=== PATIENT | male | born 1950 ===

== ENCOUNTER 2025-03-26 10:43 | Outpatient (REF) | payer SELFPAY ==
[2025-03-26 11:36] LABS: Anion Gap 9 (12-20); Blood Urea Nitrogen 19 mg/dL (9-16); Calcium 8.1 mg/dL (8.4-10.2); Carbon Dioxide 25 mmol/L (22-29); Chloride 107 mmol/L (96-108); Estimated Glomerular Filt Rate > 60; Potassium 3.9 mmol/L (3.3-5.1); Sodium 137 mmol/L (135-145)
--- OUTSIDE RECORDS SUMMARY | 2025-03-26 13:50 | XMS_ITS | Encounter Summary ---
Author Organization [employer] [place] [address] Care Team Providers Care Pullman Clerk Name Role Phone Danny Angel MD Primary Care Provider [phone] Reason for Visit * Reason Onset Date Comments VNA 03/25/2025 Encounter Details Date Type Department Care Team ([facility] st Contact Info) Description 03/25/2025 Telephone Adult Medicine [facility] [address] [place] [address] Danny Angel MD [address] [place] [address] Social History Tobacco Use Types Packs/Day Years Used Date Smoking Tobacco: Never Passive Smoke Exposure: Never Smokeless Tobacco: Never Alcohol Use Standard Drinks/Week Comments Not Currently 0 (1 standard drink = 0.6 oz pur e alcohol) Housing Instability Answer Date Recorde d Are you worried that in the next 2 months you may not have stable housing? No 03/26/2025 Food Access & Nutrition Answer Date Rec orded Do you have access to a vari ety of food including fruits and vegetables? Yes 03/26/2025 Access to Healthcare Answer Date Record ed Within the last 3 months, ho w many times did you visit the emergency department for your medical care? 2 03/26/2025 Health Literacy Answer Date Recorded How often do you need to hav e someone help you when you read instructions, pamphlets, or other written material from your doctor or pharmacy? Always 03/26/2025 Caregiver: How often do you need to have someone help you when you read instructions, pamphlets, or other written material from your doctor or pharmacy? Not on file 03/26/2025 Financial Risk Answer Date Recorded How hard is it for you to pa y for the very basics like food, housing, medical care, and air conditioning / heating? Somewhat hard 03/26/2025 Transportation Answer Date Recorded Has the lack of transportati on kept you from meetings, work, or from getting things needed for daily living? No Has the lack of transportati on kept you from medical appointments or from getting medications? No 03/26/2025 Social Isolation Answer Date Recorded How often do you feel lonely or isolated from th ose around you? Never 03/26/2025 Food Risk Answer Date Recorded Within the past 12 months we worried whether our food would run out before we got money to buy more. Never true 03/26/2025 Within the past 12 months th e food we bought just didn't last and we didn't have money to get more. Never true 03/26/2025 Dependent Care Answer Date Recorded Do you need help finding or paying for care for your loved ones. For example, child development instructor or elderly care for an older adult? No 03/26/2025 Education Answer Date Recorded Do you think completing more education or training, like finishing a GED, going to college, or learning a trade, would be helpful for you? N/A 03/26/2025 Employment and Income Answer Date Recor ded During the last four weeks, have you been actively looking for work? No 03/26/2025 Living Situation Answer Date Recorded What is your living situation? Unrecognized valu e 03/26/2025 Interpersonal Safety Answer Date Record ed Physical Abuse Unrecognized value 03/14/2025 Verbal Abuse Unrecognized value 03/14/2025 Sex and Gender Information Value Date Recorded Sex Assigned at Male 03/26/2024 11:47 AM EST Legal Sex Male 9:07 AM EST Gender Identity Male 03/26/2024 11:47 AM EST Sexual Orientation Straight 05/09/2024 8: 26 AM EST documented as of this encounter Functional Status * Are you deaf or do you have serious difficulty hearing? Answer Date of Assessment Author Yes 01/19/2025 6:35 PM Shirlene Patton RN * Are you blind or do you have serious difficulty seeing, even when wearing glasses? Answer Date of Assessment Author No 01/19/2025 6:35 PM Shirlene Patton RN * Do you have serious difficulty walking or climbing stairs? Answer Date of Assessment Author Yes 01/19/2025 6:35 PM Shirlene Patton RN * Do you have serious difficulty dressing or bathing? Answer Date of Assessment Author Yes 01/19/2025 6:35 PM Shirlene Patton RN * Because of a physical, mental, or emotional condition, do you have serious difficulty doing errandsalone such as visiting the doctor? Answer Date of Assessment Author Yes 01/19/2025 6:35 PM Shirlene Patton RN documented as of this encounter Mental Status * Because of a physical, mental, or emotional condition, do you have serious difficulty concentrating, remembering, or making decisions? (5 years old or older) Answer Entry Date Author Yes 01/19/2025 6:35 PM Shirlene Patton RN documented in this encounter Progress Notes * Lázaro Artis LPN - 03/25/2025 12:42 PM EST VO left on (+ID) Daryl Gray * Danny Angel MD - 03/25/2025 12:24 PM EST Okay to VO for BMP * Lázaro Artis LPN - 03/25/2025 8:56 AM EST VNA called for VO for BMP lab draw Hospital follow up booked for 04/15/25 Please review and advise Please send response to nurse triage pool Please send response to nurse triage pool [place] [facility] * Katty Mahesh Parra - 03/25/2025 8:46 AM EST VNA CALL Which [facility]NA office is calling? [facility] Full name of caller: Daryl The caller is A nurse Is the caller at the patients home?: no Reason for call: verbal order for labs -BMP Does caller need an urgent call back? yes Was CONTACT Telephone # obtained above?: yes Fax #: n/a documented in this encounter Plan of Treatment Upcoming Encounters Date Type Department Care Team (Late st Contact Info) Description 03/28/2025 3:00 PM EST Office Visit Pulmonology - [place] [address] [address] Siomara Lora MD [address] [place] [phone] 04/15/2025 1:00 PM EST Office Visit Adult Medicine [address] [phone] Danny Angel MD [address] [place] [id number] 05/15/2025 11:00 AM EST Office Visit Gastroenterology - [address] [facility] [address] [place] [address] Placido Troy DO [address] [address] 07/25/2025 2:45 PM EDT Office Visit [facility] Hematology On[facility] [address] [place] [phone] Fan Manrique MD [address] [place] [phone] 08/19/2025 11:30 AM EDT Office Visit [address] [phone] Danny Angel MD [address] [place] [address] 01/20/2026 2:00 PM EDT Office Visit [address] [phone] Danny Angel MD [address] [place] [address] documented as of this encounter Goals Goal Patient Goal Type Associated Problems Recent Progress Patient-Stated? Author Pt to adhere to all medications General Yes Audra Contreras, RN Note: Pt to adhere to daily medication regimen. documented as of this encounter Visit Diagnoses Not on filedocumented in this encounter Additional Health Concerns Assessment Noted Time PHQ-9 Depression Total Score: 0 05/23/19 25 6:02 PM EST documented as of this encounter Care Teams Pullman Clerk Relationship Specialty Start Date End Date Danny Angel MD [address] [place] [address] PCP - General 12/12/23 documented as of this encounter
--- OUTSIDE RECORDS SUMMARY | 2025-03-26 13:50 | XMS_ITS ---
Author Organization [address] [place] [address] Address [address] [place] [address] Phone Care Team Providers Care Deburring Machine Operator Name Role Phone Danny Angel MD Primary Care Provider Chronic Care Management Status:Ongoing (Active) Start date:03/25/2025 Enrollment date:03/25/2025 Enrollment reason:Referral by Current Participant Related social drivers of health:TH Health Literacy Case Team Name Relationship Phone Audra Contreras RN(Responsible Staff) Sign Painter Helper Continued Care and Services Coordination
--- OUTSIDE RECORDS SUMMARY | 2025-03-26 13:50 | XMS_ITS | Clinical Summary ---
Author Organization [address] [facility] Address [address] [place] [address] Phone Care Team Providers Care Vp Site Name Role Phone Danny Angel MD Primary Care Provider [phone] Allergies No known active allergies Medications aspirin 81 mg chewable tablet Chew 1 tablet (81 mg total) 1 (one) time each day. Active carbidopa-levo dopa (SINEMET) 25-100 mg per tablet TAKE 1 TABLET BY MOUTH THREE TIMES A DAY 270 tablet 02/07/20 Active omeprazole OTC (PriLOSEC OTC) 20 mg EC tablet Take 1 tablet (20 mg total) by mouth 2 (two) times a day. Do not crush, chew, or split. 60 tablet 02/14/20 25 026 Active furosemide (LASIX) 20 mg tablet Take 2 tablets (40 mg total) by mouth 1 (one) time each day. 60 each 02/14/20 25 026 Active lactulose (CHRONULAC) solution TAKE 45 ML (30 G TOTAL) BY MOUTH 4 (FOUR) TIMES A DAY. TITRATE TO 3 TO 4 BOWEL MOVEMENTS A DAY 5203 mL 1 03/12/20 Active omeprazole (PriLOSEC) [address] capsule Take 1 capsule (20 mg total) by mouth 2 (two) times a day. 02/14/20 Active lactulose (CHRONULAC) solution TAKE 45 ML (30 G TOTAL) BY MOUTH 4 (FOUR) TIMES A DAY. TITRATE TO 3 TO 4 BOWEL MOVEMENTS A DAY 5400 mL 1 10/04/19 025 Discontinued spironolactone (ALDACTONE) 100 mg tablet Take 1 tablet (100 mg total) by mouth 1 (one) time each day. 30 each 02/14/20 025 Discontinued(St op Taking at Discharge) Active Problems Problem Noted Date Diagnosed Date Hyperkalemia 03/13/2025 Gastroesophageal reflux disease 02/18/2025 Pneumonia of right middle lobe due to infectious organism 01/20/2025 SIRS (systemic inflammatory response syndrome) 1 Onychomycosis 01/14/2025 Assessment & Plan (01/15/2025 10:58 AM EDT): Anemia 01/14/2025 Assessment & Plan (01/15/2025 10:58 AM EDT): Encounter for screening for malignant neoplasm o f prostate 01/14/2025 Assessment & Plan (01/15/2025 10:58 AM EDT): Orders: Prostate specific antigen screen; Future Depression 01/14/2025 Assessment & Plan (01/15/2025 10:58 AM EDT): Recurrent right pleural effusion 12/24/2024 Pleural effusion 12/04/2024 Dyspnea and respiratory abnormalities 12/03/2024 Dyspnea 12/02/2024 Hepatocellular carcinoma 07/19/2024 Liver tumor 07/16/2024 Candidal dermatitis 05/21/2024 Cellulitis of skin 05/20/2024 Dementia due to Parkinson's disease, without behavioral disturbance, psychotic disturbance, mood disturbance, or anxiety 04/30/2024 Skin rash 04/30/2024 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 Thrombocytopenia 04/30/2024 Encephalopathy acute 03/26/2024 Cirrhosis 01/09/2024 Parkinsonism 04/17/2023 Assessment & Plan (01/15/2025 10:58 AM EDT): Orders: Ambulatory referral to Neurology; Future Vitamin D deficiency 12/14/2022 Gallstone 11/15/2022 Overview (01/09/2024): US 11/2022 DDD (degenerative disc disease), lumbar 07/28/19 22 Abnormal liver enzymes 12/18/2020 Diabetes 12/18/2020 Class 1 obesity due to excess calories in adult 12/01/2020 Primary osteoarthritis of both knees 11/12/2020 Resolved Problems Problem Noted Date Diagnosed Date Resolved Date Hepatic encephalopathy 03/14/202403/29 Encounters Date Type Department Care Team Description 03/25/2025 Telephone Adult Medicine [address] [phone] Danny Angel MD 03/20/2025 Telephone Adult Medicine [address] [phone] Delma Bagley [place] 03/19/2025 3:30 PM EST Office Visit Infectious Disease - [address] [place] [phone] Elisa Abreu MD Empyema ([facility]/HCC V24, [facility]/HCC V28) (Primary Dx) 03/17/2025 Telephone Adult Medicine [address] [phone] Padmini Koch RN 03/13/2025 3:13 PM EST - 03/15/2025 4:00 PM EST Hospital Encounter [facility] [place] [facility] Medical Surgical Unit [address] [place] [phone] Vanessa Knight MD Reid, Oswald George, MD Jones, Christopher, MD Mohani, Priya, MD Kela, Kashyap Devendrabhai, MD Discharge Disposition: Home-Health Care [facility] 02/28/2025 Telephone Adult [address] [phone] Danny Angel MD 02/26/2025 Results Follow-Up [address] [phone] Danny Angel MD 02/25/2025 2:22 PM EST - 02/25/2025 11:59 PM EST Hospital Encounter [facility] [place] [facility] CT Scan [address] [place] [phone] Recurrent right pleural effusion Discharge Disposition: Home or Self Care 02/25/2025 2:10 PM EST Lab Draw Station - [address] [phone] Cirrhosis of liver with ascites, unspecified hepatic cirrhosis type (CMS/HCC V24, CMS/HCC V28); Hypocalcemia; Hyperglycemia 02/19/2025 Telephone Adult [address] [phone] Danny Angel MD 02/19/2025 Billing Patient Not Present [address] [phone] Danny Angel MD 02/18/2025 1:00 PM EST Office Visit [address] [phone] Danny Angel MD Hepatic encephalopathy (CMS/HCC V24, CMS/HCC V28) (Primary Dx); Parkinson's disease without dyskinesia, unspecified whether manifestations fluctuate (CMS/HCC V24, CMS/HCC V28); Cirrhosis of liver without ascites, unspecified hepatic cirrhosis type (CMS/HCC V24, CMS/HCC V28); Gastroesophageal reflux disease, unspecified whether esophagitis present; Hypocalcemia; Primary osteoarthritis of both knees; Hyperglycemia 02/14/2025 2:30 PM EST Ancillary Procedure [facility] [address] [facility] [address] [place] [phone] Recurrent right pleural effusion; Lower extremity edema 02/13/2025 10:30 AM EST Office Visit Gastroenterology - [address] [place] [address] Placido Troy DO Decompensation of cirrhosis of liver ([facility]/HCC V24, [facility] V28) (Primary Dx); Pleural effusion; Hydrothorax; Balanitis; History of portal hypertension; MSSA bacteremia; Cirrhosis of liver with ascites, unspecified hepatic cirrhosis type (CMS/HCC V24, [facility]/HCC V28); Hepatocellular carcinoma ([facility]/HCC V24, [facility] V28) 02/13/2025 Telephone Adult Medicine [address] [phone] Danny Angel MD 02/04/2025 3:00 PM EDT Office Visit Pulmonology - [place] [facility] [address] [place] [phone] Siomara Lora MD Recurrent right pleural effusion (Primary Dx) 01/29/2025 Telephone [facility] - [facility] [address] [facility] [place] [address] Mary Arteaga RN 01/28/2025 Telephone Pulmonology [address] [phone] Taina Cassidy [place] 01/19/2025 5:22 PM EDT - 01/28/2025 4:45 PM EDT Hospital Encounter [facility] [place] [facility] Intermediate Care Unit B [address] [place] [phone] Lynne Guerra DO Ishtiaq, Rizwan, MD Santoyo-Pachec o, Omar D, MD Seralathan, Manikandan, MD Rasul, Yar M, MD Pneumonia of right middle lobe due to infectious organism (Primary Dx); Sepsis, due to unspecified organism, unspecified whether acute organ dysfunction present ([facility]/HCC V24, [facility]/HCC V28); Hypomagnesemia; Pleural effusion; Bacteremia; Degeneration of intervertebral disc of lumbar region, unspecified whether pain present; Parkinson's disease with dyskinesia and fluctuating manifestations (CMS/HCC V24, CMS/HCC V28) Discharge Disposition: Home-Health Care [facility] 01/17/2025 2:30 PM EDT Office Visit [facility] [facility] Hematology Oncology [address] [place] [phone] Fan Sanchez MD Hepatocellular carcinoma (CMS/HCC V24, CMS/HCC V28) (Primary Dx); Pleural effusion; Parkinson's disease with dyskinesia and fluctuating manifestations (CMS/HCC V24, CMS/HCC V28) 01/15/2025 Results Follow-Up [address] [phone] Danny Angel MD 01/14/2025 2:00 PM EDT Office Visit [address] [phone] Danny Angel MD Encounter for subsequent annual wellness visit (AWV) in Medicare patient (Primary Dx); Routine general medical examination at a health care facility; Onychomycosis; Parkinson's disease, unspecified whether dyskinesia present, unspecified whether manifestations fluctuate ([facility]/HCC V24, CMS/HCC V28); Anemia, unspecified type; Encounter for screening for malignant neoplasm of prostate; Depression, unspecified depression type 01/10/2025 2:30 PM EDT Office Visit Pulmonology - [place] [address] [phone] Siomara Lora MD Recurrent right pleural effusion (Primary Dx); Dyspnea due to congestive heart failure (CMS/HCC V24, CMS/HCC V28); Decompensated cirrhosis (CMS/HCC V24, CMS/HCC V28); Liver disease, unspecified 01/03/2025 7:31 AM EDT Anesthesia Event [facility] [facility] Main OR [address] [place] [phone] Chris Garcia DO Hard, Shannon, CRNA 01/03/2025 7:30 AM EDT - 01/03/2025 9:00 AM EDT Surgery [facility] Main OR [address] [place] [phone] Siomara Lora MD INSERTION RIGHT PLEURAL CATHETER [[id number] (CPT )] 01/03/2025 5:57 AM EDT - 01/03/2025 11:55 AM EDT Hospital Encounter [facility] Main OR [address] [place] [phone] Siomara Lora MD Recurrent right pleural effusion Discharge Disposition: Home or Self Care 01/03/2025 Telephone Adult Medicine [address] [phone] Danny Angel MD from Last 3 Months Immunizations Immunization Administration Dates Next Due Moderna SARS-CoV-2 COVID-19, mRNA, LNP-S, preservative free 07/07/2020,06/09/2020 Pneumococcal conjugate 13 va lent (Prevnar 13, PCV13) 2mo and older 12/01/2020 Tdap Tetanus diptheria acell ular pertussis (Boostrix; Adacel) 7yo and older 12/01/2020 Surgical History Surgery Date Site/Laterality Comments LIVER BIOPSY CT LIVER MICROWAVE ABLATION US PLEURAL EFFUSION Medical History Medical History Date Comments Parkinson's disease (CMS/HCC V24, CMS/HCC V28) DX:Parkinson's disease (HCC) ; COMMENT: suspicious Type 2 diabetes mellitus wit hout complications (CMS/HCC V24, CMS/HCC V28) DX:Type 2 iqra betes mellitus without complications (HCC) Hepatocellular carcinoma (CM S/HCC V24, CMS/HCC V28) Cirrhosis (CMS/HCC V24, CMS/HCC V28) Portal hypertension (CMS/HCC V24, CMS/HCC V28) Esophageal varices (CMS/HCC V24, CMS/HCC V28) Thrombocytopenia (CMS/HCC V24) Dementia (CMS/HCC V24, CMS/HCC V28) Stroke (CMS/HCC V24, CMS/HCC V28) Family History Medical History Relation Name Comments Cancer of Small Bowel Brother x5 4 Cirrhosis Brother x5 4 uncle yea rs ago, alcoholism No Known Problems Daughter Stroke Father Cancer Mother [employer]ED [employer] ESC[employer] Cancer Liver cancer Sister 1 No Known Problems Sister 2 Other: Other Sister 3 bone cancer Asthma Son 1 from asthm a attack Relation Name Status Comments Brother x5 4 Daughter Alive Father Mother Sister 1 Sister 2 Alive Sister 3 Son 1 Son 2 Alive Social History Tobacco Use Types Packs/Day Years Used Date Smoking Tobacco: Never Passive Smoke Exposure: Never Smokeless Tobacco: Never Tobacco Cessation:Counseling Given: Not Answered Alcohol Use Standard Drinks/Week Comments Not Currently [...] care for your loved ones. For example, rn child or elderly care for an older adult? [...] Orientation Straight 05/09/2024 8: 26 AM EST Last Filed Vital Signs Vital Sign Reading Time Taken Comments Blood Pressure 94/60 03/19/2025 3:00 PM EST Pulse 86 03/19/2025 3:00 PM EST Temperature 37.6 C (99.6 F) 03/19/2025 3:00 PM EST Respiratory Rate 16 03/15/2025 3:13 PM EST Oxygen Saturation 98% 03/19/2025 3:00 PM EST Inhaled Oxygen Concentration - - Weight 76.2 kg (168 lb) 03/19/2025 3:00 PM EST Height 175.3 cm (5' 9 ) 02/18/2025 12:34 PM EST Body Mass Index 24.81 02/18/2025 12:34 PM EST Plan of Treatment Upcoming Encounters Date Type Department Care Team (Late st Contact Info) Description 03/28/2025 3:00 PM EST Office Visit Pulmonology - [address] [phone] Siomara Lora MD [address] [place] [phone] 04/15/2025 1:00 PM EST Office Visit Adult Medicine [address] [phone] Danny Angel MD [address] [place], [place] 05/15/2025 11:00 AM EST Office Visit Gastroenterology - [address] [phone] Placido Troy DO [address] [phone] 07/25/2025 2:45 PM EDT Office Visit [facility] Hematology Oncology [address] [place] [phone] Fan Manrique MD [address] [place] [phone] 08/19/2025 11:30 AM EDT Office Visit Adult Medicine [address] [phone] Danny Angel MD [address] [place], [place] 01/20/2026 2:00 PM EDT Office Visit Adult [address] [phone] Danny Angel MD [address] [place], [place] Health Maintenance Due Date Last Done Comments COVID-19 Vaccine (3 - Moderna risk series) 04/10/2025 07/07/2020, 06/09/2020 Postponed from 08/04/2020 (Patient Refused) Pneumococcal Vaccine: 50+ Years (2 of 2 - PPSV23, PCV20, or PCV21) 04/10/2025 12/01/2020 Postponed from 01/26/2021 (Patient Refused) Diabetes: Blood Sugar Control Test (HGBA1C) 08/25/2025 02/25/2025, 11/05/2024, 05/14/2024, Additional history exists Influenza Vaccine (#1) 2025 Postp oned from 12/09/2024 (Patient Refused) Colorectal Cancer Screening: Stool Based Tests (FOBT/FIT) 01/08/2026 Postponed from 03/13/2022 (Patient Refused) Diabetes: Annual Urine Albumin-Creatinine Ratio (uACR) 01/08/2026 04/17/2023 Postponed from 04/17/2024 (Patient Refused) Hepatitis A Vaccines (1 of 2 - Risk 2-dose series) 01/08/2026 Postponed from 1969 (Patient Refused) Hepatitis B Vaccines (1 of 3 - Risk 3-dose series) 01/08/2026 Postponed from 2010 (Patient Refused) RSV Immunization Adult Patients (1 - Risk 50-74 years 1-dose series) 01/08/2026 Postponed from 2000 (Patient Refused) Zoster Vaccines (1 of 2) 01/08/2026 Pos tponed from 1969 (Patient Refused) Diabetes: Annual Foot Exam 01/14/2026 01/14/2025 Diabetes: Annual Retina Eye Exam 01/14/2026 Postponed from 1960 (Patient Refused) Medicare Annual Wellness Visit 01/14/2026 01/14/2025 Diabetes: Annual GFR (Glomerular Filtration Rate) 03/15/2026 03/15/2025, 03/14/2025, 03/13/2025, Additional history exists Falls Risk Assessment 03/15/2026 03/15/2025 Hypertension/CHF/CAD Annual BMP Blood Test 03/15/2026 03/15/2025, 03/14/2025, 03/13/2025, Additional history exists Social Influencers of Health Screening 03/26/2026 03/26/2025 Cholesterol Screening (Lipid Panel) 11/05/2029 11/05/2024, 05/14/2024, 04/30/2024, Additional history exists DTaP,Tdap,and Td Vaccines (2 - Td or Tdap) 12/01/2030 12/01/2020 Hepatitis C Screening Completed 10/14/2022 Depression Screening Completed 01/13/2025, 01/08/20 24 HIB Vaccines Aged Out No longer eligi ble based on patient's age to complete this topic HPV Vaccines Aged Out No longer eligi ble based on patient's age to complete this topic IPV Vaccines Aged Out No longer eligi ble based on patient's age to complete this topic MMR Vaccines Aged Out No longer eligi ble based on patient's age to complete this topic Meningococcal ACWY Vaccine Aged Out N o longer eligible based on patient's age to complete this topic Meningococcal B Vaccine Aged Out No l onger eligible based on patient's age to complete this topic RSV Immunization Patients Under 20 months Aged Out No longer eligible based on patient's age to complete this topic Varicella Vaccines Aged Out No longer eligible based on patient's age to complete this topic Goals Goal Patient Goal Type Associated Problems Recent Progress Patient-Stated? Author Pt to adhere to all medications General Yes Audra Contreras, RN Note: Pt to adhere to daily medication regimen. Daughter to call for fuel assistance General Yes Audra Contreras, RN Interventions Community Resource Recommendations Community Resource Services Recommended Domains Addressed Status Status Reason/Outcome Date/Time [facility] - Food Pantry Food Pantry Food Risk 12/05/2024 3:21 PM EDT [facility] - Food Pantry Food Pantry Food Risk 12/05/2024 3:21 PM EDT [facility] Food Pantry Food Pantry Food Risk 12/05/2024 3:21 PM EDT [facility] [place] - Emergency Food Pantry Food Pantry Food Risk 12/05/2024 3:[address] [facility] - Food Pantry Food Pantry Food Risk 12/05/2024 3:[address] [employer] Success - Financial Education & Counseling Credit Counseling, Financial Education, Homebuyer Education Financial Risk 12/05/2024 3:21 PM EDT Alexey Ugarte [facility] - Emergency Food Distribution Program (ML Food Pantry Food Risk 12/05/2024 3:21 PM EDT [facility] [place] - Food Pantry Food Pantry Food Risk 12/05/2024 3:21 PM EDT [facility] - Food Pantry Food Pantry Food Risk 12/05/2024 3:21 PM EDT [facility] - Food Pantry Food Pantry Food Risk 12/05/2024 3:21 PM EDT Revival [facility] - Food Pantry Food Pantry Food Risk 12/05/2024 3:21 PM EDT [facility] [place] - Emergency Food Pantry Emergency Food Food Risk 12/05/2024 3:[address] [facility] - Food Pantry Food Pantry Food Risk 12/05/2024 3:21 PM EDT [facility] - Food Pantry Food Pantry Food Risk 12/05/2024 3:21 PM EDT [employer] - [facility] Food Pantry Food Pantry Food Risk 12/05/2024 3:21 PM EDT [facility] Food Pantry Food Risk 12/05/2024 3:21 PM EDT [facility] - Food Pantry Food Pantry Food Risk 12/05/2024 3:21 PM EDT [facility] - Food Pantry Emergency Food, Food Pantry Food Risk 12/05/2024 3:21 PM EDT from Last 12 Months Procedures Procedure Name Priority Date/Time Associated Diagnosis Comments ECG ANNOTATED 03/17/2025 MAGNESIUM Routine 03/15/2025 6:33 AM EST BASIC METABOLIC PANEL Routine 03/15/2025 6:33 AM EST COMPLETE BLOOD COUNT Routine 03/15/2025 6:33 AM EST PHOSPHORUS Routine 03/15/2025 6:33 AM EST POCT GLUCOSE BLOOD Routine 03/14/2025 3:22 PM EST POCT GLUCOSE BLOOD Routine 03/14/2025 11:32 AM EST MAGNESIUM Routine 03/14/2025 5:49 AM EST AMMONIA Routine 03/14/2025 5:49 AM EST CBC WITH AUTO DIFFERENTIAL Routine 03/14/2025 5:49 AM EST CBC AND DIFFERENTIAL Routine 03/14/2025 5:49 AM EST BASIC METABOLIC PANEL Routine 03/14/2025 5:49 AM EST POCT GLUCOSE BLOOD Routine 03/14/2025 2:16 AM EST BASIC METABOLIC PANEL STAT 03/13/2025 9:35 PM EST ..POTASSIUM, PLASMA STAT 03/13/2025 9:35 PM EST POCT GLUCOSE BLOOD Routine 03/13/2025 8:32 PM EST LACTATE, WITH REFLEX Timed 03/13/2025 8:[address] ABDOMEN PELVIS W CONTRAST STAT 03/13/2025 7:[address] HEAD WO CONTRAST STAT 03/13/2025 7:44 PM EST LIPASE STAT Add-on 03/13/2025 6:10 PM EST COMPREHENSIVE METABOLIC PANEL STAT Add-on 03/13/2025 6:10 PM EST AMMONIA STAT 03/13/2025 6:10 PM EST SALICYLATE LEVEL STAT 03/13/2025 6:10 PM EST ACETAMINOPHEN LEVEL STAT 03/13/2025 6:10 PM EST ACTIVATED PARTIAL THROMBOPLASTIN TIME STAT 03/13/2025 6:10 PM EST PROTHROMBIN TIME WITH INR STAT 03/13/2025 6:10 PM EST TROPONIN I HIGH SENSITIVITY STAT 03/13/2025 6:10 PM EST LACTATE, WITH REFLEX STAT 03/13/2025 6:10 PM EST MAGNESIUM STAT 03/13/2025 6:10 PM EST XR CHEST 1 VIEW STAT 03/13/2025 6:09 PM EST ECG 12-LEAD STAT 03/13/2025 5:00 PM EST GAN URINE CULTURE TUBE STAT 03/13/2025 4:55 PM EST URINALYSIS WITH REFLEX MICROSCOPIC AND CULTURE STAT 03/13/2025 4:55 PM EST URINALYSIS WITH REFLEX MICROSCOPIC AND CULTURE STAT 03/13/2025 4:55 PM EST CULTURE URINE STAT 03/13/2025 4:55 PM EST CBC WITH AUTO DIFFERENTIAL STAT 03/13/2025 4:40 PM EST CBC AND DIFFERENTIAL STAT 03/13/2025 4:40 PM EST B-TYPE NATRIURETIC PEPTIDE STAT 03/13/2025 4:33 PM EST VENOUS BLOOD GAS STAT 03/13/2025 4:33 PM EST CULTURE BLOOD STAT 03/13/2025 4:33 PM EST CULTURE BLOOD STAT 03/13/2025 4:33 PM EST OK CRITICAL CARE 30-74 MINUTES Routine 03/13/2025 3:[address] CHEST WO CONTRAST Routine 02/25/2025 2:43 PM EST Recurrent right pleural effusion HEMOGLOBIN A1C Routine 02/25/2025 2:12 PM EST Hyperglycemia CALCIUM, IONIZED Routine 02/25/2025 2:12 PM EST Hypocalcemia BASIC METABOLIC PANEL Routine 02/25/2025 2:12 PM EST Cirrhosis of liver with ascites, unspecified hepatic cirrhosis type (CMS/HCC V24, CMS/HCC V28) TRANSTHORACIC ECHOCARDIOGRAM (TTE) COMPLETE W/ CONTRAST Routine 02/14/2025 3:34 PM EST Recurrent right pleural effusion Lower extremity edema POCT GLUCOSE BLOOD Routine 01/28/2025 11:47 AM EDT LAVENDER - EDTA Routine 01/28/2025 6:16 AM EDT EXTRA TUBES Routine 01/28/2025 6:16 AM EDT BASIC METABOLIC PANEL Routine 01/28/2025 6:16 AM EDT POCT GLUCOSE BLOOD Routine 01/27/2025 8:22 PM EDT POCT GLUCOSE BLOOD Routine 01/27/2025 3:39 PM EDT POCT GLUCOSE BLOOD Routine 01/27/2025 11:26 AM EDT POCT GLUCOSE BLOOD Routine 01/27/2025 7:51 AM EDT MANUAL DIFFERENTIAL - SYSMEX WAM Routine 01/27/2025 5:51 AM EDT CBC WITH AUTO DIFFERENTIAL Routine 01/27/2025 5:51 AM EDT MAGNESIUM Timed 01/27/2025 5:51 AM EDT CBC AND DIFFERENTIAL Routine 01/27/2025 5:51 AM EDT COMPREHENSIVE METABOLIC PANEL Timed 01/27/2025 5:51 AM EDT POCT GLUCOSE BLOOD Routine 01/26/2025 8:44 PM EDT POCT GLUCOSE BLOOD Routine 01/26/2025 11:32 AM EDT MANUAL DIFFERENTIAL - SYSMEX WAM Routine 01/26/2025 5:43 AM EDT CBC WITH AUTO DIFFERENTIAL Routine 01/26/2025 5:43 AM EDT MAGNESIUM Timed 01/26/2025 5:43 AM EDT CBC AND DIFFERENTIAL Routine 01/26/2025 5:43 AM EDT COMPREHENSIVE METABOLIC PANEL Timed 01/26/2025 5:43 AM EDT POCT GLUCOSE BLOOD Routine 01/25/2025 8:22 PM EDT POCT GLUCOSE BLOOD Routine 01/25/2025 3:53 PM EDT POCT GLUCOSE BLOOD Routine 01/25/2025 10:56 AM EDT POCT GLUCOSE BLOOD Routine 01/25/2025 8:21 AM EDT MANUAL DIFFERENTIAL - SYSMEX WAM Routine 01/25/2025 5:53 AM EDT CBC WITH AUTO DIFFERENTIAL Routine 01/25/2025 5:53 AM EDT MAGNESIUM Timed 01/25/2025 5:53 AM EDT CBC AND DIFFERENTIAL Routine 01/25/2025 5:53 AM EDT COMPREHENSIVE METABOLIC PANEL Timed 01/25/2025 5:53 AM EDT POCT GLUCOSE BLOOD Routine 01/24/2025 7:49 PM EDT POCT GLUCOSE BLOOD Routine 01/24/2025 4:[address] CHEST WO CONTRAST STAT 01/24/2025 4:40 PM EDT POCT GLUCOSE BLOOD Routine 01/24/2025 11:21 AM EDT POCT GLUCOSE BLOOD Routine 01/24/2025 7:48 AM EDT CBC WITH AUTO DIFFERENTIAL Routine 01/24/2025 5:44 AM EDT MAGNESIUM Timed 01/24/2025 5:44 AM EDT CBC AND DIFFERENTIAL Routine 01/24/2025 5:44 AM EDT COMPREHENSIVE METABOLIC PANEL Timed 01/24/2025 5:44 AM EDT POCT GLUCOSE BLOOD Routine 01/23/2025 8:24 PM EDT POCT GLUCOSE BLOOD Routine 01/23/2025 4:05 PM EDT POCT GLUCOSE BLOOD Routine 01/23/2025 11:38 AM EDT XR CHEST 1 VIEW Routine 01/23/2025 9:33 AM EDT POCT GLUCOSE BLOOD Routine 01/23/2025 7:31 AM EDT CBC WITH AUTO DIFFERENTIAL Routine 01/23/2025 5:49 AM EDT MAGNESIUM Timed 01/23/2025 5:49 AM EDT CBC AND DIFFERENTIAL Routine 01/23/2025 5:49 AM EDT COMPREHENSIVE METABOLIC PANEL Timed 01/23/2025 5:49 AM EDT POCT GLUCOSE BLOOD Routine 01/22/2025 7:52 PM EDT POCT GLUCOSE BLOOD Routine 01/22/2025 4:13 PM EDT POCT GLUCOSE BLOOD Routine 01/22/2025 11:34 AM EDT XR CHEST 2 VIEWS Routine 01/22/2025 9:36 AM EDT POCT GLUCOSE BLOOD Routine 01/22/2025 8:02 AM EDT CBC WITH AUTO DIFFERENTIAL Routine 01/22/2025 5:48 AM EDT AMMONIA Routine 01/22/2025 5:48 AM EDT MAGNESIUM Timed 01/22/2025 5:48 AM EDT CBC AND DIFFERENTIAL Routine 01/22/2025 5:48 AM EDT COMPREHENSIVE METABOLIC PANEL Timed 01/22/2025 5:48 AM EDT POCT GLUCOSE BLOOD Routine 01/21/2025 8:59 PM EDT POCT GLUCOSE BLOOD Routine 01/21/2025 3:55 PM EDT TRANSTHORACIC ECHOCARDIOGRAM (TTE) COMPLETE W/ CONTRAST Routine 01/21/2025 11:41 AM EDT Bacteremia POCT GLUCOSE BLOOD Routine 01/21/2025 11:34 AM EDT POCT GLUCOSE BLOOD Routine 01/21/2025 8:02 AM EDT LACTATE Routine 01/21/2025 7:56 AM EDT VANCOMYCIN, TROUGH Timed 01/21/2025 6:13 AM EDT MAGNESIUM Routine 01/21/2025 6:13 AM EDT COMPREHENSIVE METABOLIC PANEL Routine 01/21/2025 6:13 AM EDT RBC MORPHOLOGY REVIEW Routine 01/21/2025 6:10 AM EDT CBC WITH AUTO DIFFERENTIAL Add-On 01/21/2025 6:10 AM EDT CBC AND DIFFERENTIAL Add-On 01/21/2025 6:10 AM EDT LAVENDER - EDTA Routine 01/21/2025 6:10 AM EDT EXTRA TUBES Routine 01/21/2025 6:10 AM EDT XR CHEST 1 VIEW STAT 01/21/2025 5:25 AM EDT POCT GLUCOSE BLOOD Routine 01/21/2025 1:12 AM EDT LACTATE STAT 01/20/2025 8:07 PM EDT POCT GLUCOSE BLOOD Routine 01/20/2025 7:56 PM EDT LACTATE Timed 01/20/2025 3:26 PM EDT CULTURE BLOOD STAT 01/20/2025 3:26 PM EDT POCT GLUCOSE BLOOD Routine 01/20/2025 2:46 PM EDT CULTURE BLOOD STAT 01/20/2025 1:42 PM EDT POCT GLUCOSE BLOOD Routine 01/20/2025 11:21 AM EDT LACTATE, WITH REFLEX Timed 01/20/2025 10:05 AM EDT POCT GLUCOSE BLOOD Routine 01/20/2025 7:38 AM EDT LACTATE, WITH REFLEX Routine 01/20/2025 6:01 AM EDT CBC WITH AUTO DIFFERENTIAL Routine 01/20/2025 6:01 AM EDT COMPREHENSIVE METABOLIC PANEL Routine 01/20/2025 6:01 AM EDT CBC AND DIFFERENTIAL Routine 01/20/2025 6:01 AM EDT NON-GYNECOLOGIC CYTOLOGY Routine 01/20/2025 1:52 AM EDT GLUCOSE, BODY FLUID Routine 01/20/2025 1:52 AM EDT PATHOLOGIST REVIEW BODY FLUID Routine 01/20/2025 1:52 AM EDT DIFFERENTIAL BODY FLUID Routine 01/20/2025 1:52 AM EDT CELL COUNT WITH REFLEX DIFFERENTIAL, BODY FLUID Routine 01/20/2025 1:52 AM EDT ALBUMIN, BODY FLUID Routine 01/20/2025 1:52 AM EDT PROTEIN, BODY FLUID Routine 01/20/2025 1:52 AM EDT LACTATE DEHYDROGENASE, BODY FLUID Routine 01/20/2025 1:52 AM EDT CULTURE BODY FLUID WITH GRAM STAIN Routine 01/20/2025 1:52 AM EDT LACTATE Routine 01/20/2025 12:36 AM EDT GAN URINE CULTURE TUBE STAT 01/19/2025 10:05 PM EDT URINALYSIS WITH REFLEX MICROSCOPIC AND CULTURE STAT 01/19/2025 10:05 PM EDT URINALYSIS WITH REFLEX MICROSCOPIC AND CULTURE STAT 01/19/2025 10:05 PM EDT CULTURE URINE STAT 01/19/2025 10:05 PM EDT POCT GLUCOSE BLOOD Routine 01/19/2025 9:[address] CHEST WO CONTRAST STAT 01/19/2025 8:09 PM EDT MRSA PCR STAT 01/19/2025 7:55 PM EDT VENOUS BLOOD GAS STAT 01/19/2025 7:53 PM EDT LACTATE, WITH REFLEX Timed 01/19/2025 7:53 PM EDT ECG 12-LEAD Routine 01/19/2025 6:20 PM EDT RESPIRATORY VIRUS PANEL MOLECULAR STUDY STAT 01/19/2025 5:57 PM EDT TROPONIN I HIGH SENSITIVITY STAT 01/19/2025 5:56 PM EDT PROTHROMBIN TIME WITH INR STAT 01/19/2025 5:56 PM EDT LACTATE DEHYDROGENASE Add-On 01/19/2025 5:51 PM EDT PROCALCITONIN Add-On 01/19/2025 5:51 PM EDT MAGNESIUM STAT Add-on 01/19/2025 5:51 PM EDT CBC WITH AUTO DIFFERENTIAL STAT 01/19/2025 5:51 PM EDT COMPREHENSIVE METABOLIC PANEL STAT 01/19/2025 5:51 PM EDT CBC AND DIFFERENTIAL STAT 01/19/2025 5:51 PM EDT LACTATE, WITH REFLEX STAT 01/19/2025 5:51 PM EDT BLOOD CULTURE PATHOGENS BY PCR Routine 01/19/2025 5:51 PM EDT CULTURE BLOOD STAT 01/19/2025 5:51 PM EDT CULTURE BLOOD STAT 01/19/2025 5:51 PM EDT XR CHEST 1 VIEW STAT 01/19/2025 5:50 PM EDT CBC WITH AUTO DIFFERENTIAL Routine 01/14/2025 3:35 PM EDT Encounter for subsequent annual wellness visit (AWV) in Medicare patient CBC AND DIFFERENTIAL Routine 01/14/2025 3:35 PM EDT Encounter for subsequent annual wellness visit (AWV) in Medicare patient THYROID STIMULATING HORMONE WITH REFLEX TO FREE T4 AND FREE T3 Routine 01/14/2025 3:35 PM EDT Encounter for subsequent annual wellness visit (AWV) in Medicare patient COMPREHENSIVE METABOLIC PANEL Routine 01/14/2025 3:35 PM EDT Encounter for subsequent annual wellness visit (AWV) in Medicare patient CALCIUM, IONIZED Routine 01/14/2025 3:35 PM EDT Encounter for subsequent annual wellness visit (AWV) in Medicare patient PROSTATE SPECIFIC ANTIGEN SCREEN Routine 01/14/2025 3:35 PM EDT Encounter for subsequent annual wellness visit (AWV) in Medicare patient Encounter for screening for malignant neoplasm of prostate XR CHEST 1 VIEW Routine 01/03/2025 11:05 AM EDT XR CHEST 1 VIEW STAT 01/03/2025 9:10 AM EDT NON-GYNECOLOGIC CYTOLOGY Routine 01/03/2025 8:15 AM EDT Recurrent right pleural effusion DIFFERENTIAL BODY FLUID STAT 01/03/2025 8:15 AM EDT Recurrent right pleural effusion CELL COUNT WITH REFLEX DIFFERENTIAL, BODY FLUID STAT 01/03/2025 8:15 AM EDT Recurrent right pleural effusion PROTEIN, BODY FLUID STAT 01/03/2025 8:15 AM EDT Recurrent right pleural effusion LACTATE DEHYDROGENASE, BODY FLUID STAT 01/03/2025 8:15 AM EDT Recurrent right pleural effusion GLUCOSE, BODY FLUID STAT 01/03/2025 8:15 AM EDT Recurrent right pleural effusion ALBUMIN, BODY FLUID STAT 01/03/2025 8:15 AM EDT Recurrent right pleural effusion CULTURE BODY FLUID WITH GRAM STAIN Routine 01/03/2025 8:15 AM EDT Recurrent right pleural effusion OK INSERTION CATHETER PLEURAL INDWELLING TUNNELED WITH CUFF 01/03/2025 7:30 AM EDT Recurrent right pleural effusion Case Notes Right pleurx catheter, intelligence officer basic POCT GLUCOSE BLOOD Routine 01/03/2025 6:19 AM EDT LIPID PANEL WITH REFLEX TO DIRECT LDL Routine 11/05/2024 2:36 PM EDT Hyperlipidemia, unspecified hyperlipidemia type DEPRESSION SCREENING Routine 04/17/2023 URINE ALBUMIN CREATININE RATIO Routine 04/17/2023 HEPATITIS C SCREENING Routine 10/14/2022 from Last 3 Months or Most Recently Relevant to Health Maintenance Results * ECG-Annotated (03/17/2025) us Provider Onbase MD ECG ORDERABLES Final Result * (ABNORMAL) Complete blood count (03/15/2025 6:33 AM EST) WBC 6.2 4.8 - 10.8 K/mcL LAB HEMETOLOGY METHOD 03/15/2025 8:13 AM EST [facility] RBC 3.10(L) 4.50 - 5.50 M/mcL LAB HEMETOLOGY METHOD 03/15/2025 8:13 AM EST [facility] Hemoglobin 10.4(L) 13.5 - 17.5 g/dL LAB HEMETOLOGY METHOD 03/15/2025 8:13 AM [facility] Hematocrit 30.0(L) 42.0 - 54.0 % LAB HEMETOLOGY METHOD 03/15/2025 8:13 AM [facility] MCV 98.4(H) 79.0 - 98.0 FL LAB HEMETOLOGY METHOD 03/15/2025 8:13 AM [facility] MCH 34.1(H) 27.0 - 32.0 pcg LAB HEMETOLOGY METHOD 03/15/2025 8:13 AM [facility] MCHC 34.7 32.0 - 37.0 g/dL LAB HEMETOLOGY METHOD 03/15/2025 8:13 AM [facility] RDW 18.1(H) 11.0 - 15.0 % LAB HEMETOLOGY METHOD 03/15/2025 8:13 AM [facility] Platelets 127(L) 130 - 400 K/mcL LAB HEMETOLOGY METHOD 03/15/2025 8:13 AM [facility] MPV 9.8 7.0 - 11.0 FL LAB HEMETOLOGY METHOD 03/15/2025 8:13 AM [facility] NRBC 0.0 <1.0 % LAB HEMETOLOGY METHOD 03/15/2025 8:13 AM [facility] NRBC Absolute 0.00 <0.10 K/mcL LAB HEMETOLOGY METHOD 03/15/2025 8:13 AM [facility] Blood Venous blood specimen / Unknown Venipuncture / Unknown 03/15/2025 6:33 AM EST 03/15/2025 7:34 AM EST us Alvaro Melendrez MD LAB BLOOD ORDERABLE S Final Result [facility] [address] [place] [address], [place] [phone] * Phosphorus (03/15/2025 6:33 AM EST) Phosphorus 3.0 2.5 - 4.5 mg/dL 03/15/2025 8:21 AM EST [facility] Blood Venous blood specimen / Unknown Venipuncture / Unknown 03/15/2025 6:33 AM EST 03/15/2025 7:35 AM EST us Alvaro Melendrez MD LAB BLOOD ORDERABLE S Final Result Performing Organization Address City/[facility]/ZIP Co de Phone Number [facility] [address] [place] [address], [place] [phone] * (ABNORMAL) Magnesium (03/15/2025 6:33 AM EST) Only the most recent of11 resultswithin the time period is included. Magnesium 1.7(L) 1.9 - 2.6 mg/dL 03/15/2025 8:21 AM EST [facility] Blood Venous blood specimen / Unknown Venipuncture / Unknown 03/15/2025 6:33 AM EST 03/15/2025 7:35 AM EST us Alvaro Melendrez MD LAB BLOOD ORDERABLE S Final Result [facility] [address] [place] [address], [place] [phone] * (ABNORMAL) Basic metabolic panel (03/15/2025 6:33 AM EST) Only the most recent of5 resultswithin the time period is included. Sodium 135 133 - 145 mmol/L 03/15/2025 8:27 AM EST [facility] Potassium 4.0 3.5 - 5.5 mmol/L 03/15/2025 8:27 AM [facility] Chloride 104 96 - 110 mmol/L 03/15/2025 8:27 AM [facility] CO2 24 21 - 32 mmol/L 03/15/2025 8:27 AM [facility] Anion Gap 7 3 - 11 03/15/2025 8:27 AM [facility] Glucose 76 70 - 100 mg/dL 03/15/2025 8:27 AM [facility] BUN 26(H) 5 - 25 mg/dL 03/15/2025 8:27 AM [facility] Creatinine 1.02 0.70 - 1.30 mg/dL 03/15/2025 8:27 AM [facility] eGFR 77 >=60 mL/min/1. 73m2 03/15/2025 8:27 AM [facility] Comment:Calculation based on the Chronic Kidney Disease Epidemiology Collaboration (CKD-EPI) equation refit without adjustment for race. BUN/Creatinine Ratio 25.5 03/15/2025 8:27 AM [facility] Calcium 8.5 8.5 - 10.5 mg/dL 03/15/2025 8:27 AM [facility] Blood Venous blood specimen / Unknown Venipuncture / Unknown 03/15/2025 6:33 AM EST 03/15/2025 7:35 AM EST us Alvaro Melendrez MD LAB BLOOD ORDERABLE S Final Result [facility] [address] [place] [address], * (ABNORMAL) POCT Glucose, blood (03/14/2025 3:22 PM EST) Only the most recent of38 resultswithin the time period is included. Glucose POCT 137(H) 70 - 100 mg/dL 03/14/2025 3:22 PM [facility] Blood Capillary blood specimen / Unknown 03/14/2025 3:22 PM EST 03/14/2025 3:23 PM EST Alvaro Melendrez MD LAB POINT O F CARE TEST DOCKED DEVICE UNSOLICITED RESULTS Final Result [facility] [address] [place] [address], [place] [phone] * (ABNORMAL) CBC auto differential (03/14/2025 5:49 AM EST) Only the most recent of12 resultswithin the time period is included. WBC 5.3 4.8 - 10.8 K/mcL LAB HEMETOLOGY METHOD 03/14/2025 7:40 AM [facility] RBC 4.90 4.50 - 5.50 M/mcL LAB HEMETOLOGY METHOD 03/14/2025 7:40 AM [facility] Hemoglobin 16.9 13.5 - 17.5 g/dL LAB HEMETOLOGY METHOD 03/14/2025 7:40 AM [facility] Hematocrit 48.1 42.0 - 54.0 % LAB HEMETOLOGY METHOD 03/14/2025 7:40 AM [facility] MCV 99.2(H) 79.0 - 98.0 FL LAB HEMETOLOGY METHOD 03/14/2025 7:40 AM [facility] MCH 34.8(H) 27.0 - 32.0 pcg LAB HEMETOLOGY METHOD 03/14/2025 7:40 AM [facility] MCHC 35.1 32.0 - 37.0 g/dL LAB HEMETOLOGY METHOD 03/14/2025 7:40 AM [facility] RDW 18.6(H) 11.0 - 15.0 % LAB HEMETOLOGY METHOD 03/14/2025 7:40 AM [facility] Platelets 84(L) 130 - 400 K/mcL LAB HEMETOLOGY METHOD 03/14/2025 7:40 AM [facility] Comment:reviewed by slide MPV 10.1 7.0 - 11.0 FL LAB HEMETOLOGY METHOD 03/14/2025 7:40 AM [facility] NRBC 0.0 <1.0 % LAB HEMETOLOGY METHOD 03/14/2025 7:40 AM [facility] NRBC Absolute 0.00 <0.10 K/mcL LAB HEMETOLOGY METHOD 03/14/2025 7:40 AM [facility] Neutrophils Relative 51.6 % LAB HEMETOLOGY METHOD 03/14/2025 7:40 AM [facility] Lymphocytes Relative 33.0 % LAB HEMETOLOGY METHOD 03/14/2025 7:40 AM [facility] Monocytes Relative 11.1 % LAB HEMETOLOGY METHOD 03/14/2025 7:40 AM [facility] Eosinophils Relative 1.7 % LAB HEMETOLOGY METHOD 03/14/2025 7:40 AM [facility] Basophils Relative 1.3 % LAB HEMETOLOGY METHOD 03/14/2025 7:40 AM [facility] Immature Granulocytes Relative 1.3 % LAB HEMETOLOGY METHOD 03/14/2025 7:40 AM [facility] Neutrophils Absolute 2.73 1.50 - 7.00 K/mcL LAB HEMETOLOGY METHOD 03/14/2025 7:40 AM [facility] Lymphocytes Absolute 1.75 1.00 - 5.00 K/mcL LAB HEMETOLOGY METHOD 03/14/2025 7:40 AM [facility] Monocytes Absolute 0.59 0.20 - 1.00 K/mcL LAB HEMETOLOGY METHOD 03/14/2025 7:40 AM EST [facility] Eosinophils Absolute 0.09 0.00 - 0.50 K/[facility] LAB HEMETOLOGY METHOD 03/14/2025 7:40 AM EST [facility] Basophils Absolute 0.07 0.00 - 0.20 K/[facility] LAB HEMETOLOGY METHOD 03/14/2025 7:40 AM EST [facility] Immature Granulocytes Absolute 0.07(H) 0.00 - 0.03 K/[facility] LAB HEMETOLOGY METHOD 03/14/2025 7:40 AM EST [facility] Blood Venous blood specimen / Unknown Venipuncture / Unknown 03/14/2025 5:49 AM EST 03/14/2025 6:23 AM EST Talon Bonilla MD LAB BLOOD ORDERABLES Final Result Performing Organization Address City/[facility]/ZIP Co de Phone Number [facility] [address] [place] [address], [place] [phone] * (ABNORMAL) Ammonia (03/14/2025 5:49 AM EST) Only the most recent of3 resultswithin the time period is included. Ammonia 39(H) 11 - 35 mcmol/L 03/14/2025 6:59 AM EST [facility] Blood Venous blood specimen / Unknown Venipuncture / Unknown 03/14/2025 5:49 AM EST 03/14/2025 6:22 AM EST Ness JAY LAB BLOOD ORDERABLES Fi nal Result [facility] [address] [place] [address], [place] [phone] * Potassium, plasma (03/13/2025 9:35 PM EST) Potassium 4.2 3.5 - 5.5 mmol/L 03/13/2025 10:05 PM EST [facility] Blood Venous blood specimen / Unknown Venipuncture / Unknown 03/13/2025 9:35 PM EST 03/13/2025 9:48 PM EST us Talon Bonilla MD LAB BLOOD ORDERABLES Final Result Performing Organization Address City/[facility]/ZIP Co de Phone Number [facility] [address] [place] [address], [place] [phone] * Lactate, with reflex (03/13/2025 8:03 PM EST) Only the most recent of6 resultswithin the time period is included. LACTIC ACID 1.9 0.4 - 2.0 mmol/L 03/13/2025 8:50 PM EST [facility] Blood Venous blood specimen / Unknown Venipuncture / Unknown 03/13/2025 8:03 PM EST 03/13/2025 8:20 PM EST Vanessa Knight MD LAB BLOOD ORDERABLES Final Resul t Performing Organization Address [facility] [place]/[facility] Co de Phone Number [facility] [address] [place] [address], [place] [phone] * CT Abdomen Pelvis w Contrast (03/13/2025 7:44 PM EST) Anatomical Region Laterality Modality Body Computed Tomogra phy 03/13/2025 8:10 PM EST Addenda Addendum by Poncho Moss MD on 03/13/2025 8:14 PM EST ADDENDUM: Receipt of this report by the clinical staff was confirmed with VANESSA KNIGHT on Mar 13, 2025 20:14:00 EST. This document has been electronically signed by: Marian Inman on 03/13/2025 20:14:27 Impressions 03/13/2025 8:10 PM EST Impression: 1. Sequela of apparent treated hepatic lesion as described above. Small amount of enhancement within the treated lesion suggest small amount of intralesional hemorrhage. 2. No other evidence of acute abnormality. Specifically, no evidence of bowel obstruction. 3. Sequela of hepatic cirrhosis and portal venous hypertension as described above. This document has been electronically signed by: Poncho Moss MD on 03/13/2025 20:10:36 Narrative 03/13/2025 8:10 PM EST INDICATION: AMS, concern bowel obstruction Exam: Contrast-enhanced CT abdomen and pelvis with multiplanar reformats. Comparison: 05/31/2024. Findings: CT abdomen: Lung bases reveal mild bibasilar atelectasis and a tiny right pleural effusion. Liver reveals similar cirrhotic morphology. There is a fairly large low-density area within right hepatic lobe measuring up to 5.7 x 4.8 cm transverse and AP dimension (3; 40), with some mild focal enhancement (3; 40-43). Findings suggest sequela of treated lesion in this location. Small amount of focal enhancement could suggest small amount of intralesional hemorrhage. No other focal lesions. No ductal dilatation. Gallbladder reveals cholelithiasis, without CT evidence of cholecystitis. Spleen reveals similar splenomegaly measuring 15.3 cm craniocaudad dimension. Sequela of portal venous hypertension is re-identified with significant perigastric varices and splenorenal collaterals. Pancreas and adrenal glands appear unremarkable. No free intraperitoneal fluid or retroperitoneal masses or adenopathy. Abdominal aorta is normal caliber with mild calcific athero sclerosis. Bowel loops reveal no abnormal wall thickening or distention. The appendix is unremarkable. No significant diverticular disease. CT pelvis: No pelvic masses, fluid or adenopathy. Urinary bladder is free of gross filling defects. Prostate gland and seminal vesicles are stable. Osseous structures reveal no destructive osseous lesions. Procedure Note Poncho Moss MD - 03/13/2025 INDICATION: AMS, concern bowel obstruction Exam: Contrast-enhanced CT abdomen and pelvis with multiplanarreformats. Comparison: 05/31/2024. Findings: CT abdomen: Lung bases reveal mild bibasilar atelectasis and a tinyright pleural effusion. Liver reveals similar cirrhotic morphology. There is a fairly large low-density area within right hepatic lobe measuring up to 5.7 x 4.8 cm transverse and AP dimension (3; 40), with some mild focal enhancement (3; 40-43). Findings suggest sequela of treated lesion inthis location. Small amount of focal enhancement could suggest small amountof intralesional hemorrhage. No other focal lesions. No ductal dilatation. Gallbladder reveals cholelithiasis, without CT evidence ofcholecystitis. Spleen reveals similar splenomegaly measuring 15.3 cm craniocaudad dimension. Sequela of portal venous hypertension is re-identified with significant perigastric varices and splenorenal collaterals. Pancreas and adrenal glands appear unremarkable. No free intraperitoneal fluid or retroperitoneal masses or adenopathy. Abdominal aorta is normal caliber with mild calcific athero sclerosis. Bowel loops reveal no abnormal wall thickening or distention. Theappendix is unremarkable. No significant diverticular disease. CT pelvis: No pelvic masses, fluid or adenopathy. Urinary bladder isfree of gross filling defects. Prostate gland and seminal vesicles arestable. Osseous structures reveal no destructive osseous lesions. IMPRESSION: Impression: 1. Sequela of apparent treated hepatic lesion as described above. Small amount of enhancement within the treated lesion suggest small amount of intralesional hemorrhage. 2. No other evidence of acute abnormality. Specifically, no evidence of bowel obstruction. 3. Sequela of hepatic cirrhosis and portal venous hypertension as described above. This document has been electronically signed by: Poncho Moss MD on 03/13/2025 20:10:36 Vanessa Knight MD [facility] CT PROCEDURES Edited Result - Final * CT Head wo Contrast (03/13/2025 7:44 PM EST) Anatomical Region Laterality Modality Head and Neck Computed Tomogra phy 03/13/2025 8:04 PM EST Impressions 03/13/2025 8:04 PM EST Impression: 1. No acute intracranial abnormalities. This document has been electronically signed by: Poncho Moss MD on 03/13/2025 20:04:04 Narrative 03/13/2025 8:04 PM EST INDICATION: AMS CT head without contrast Comparison: 03/26/2024 Findings: No intracranial mass, midline shift, hydrocephalus, or acute hemorrhage. No CT evidence of acute ischemia. 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 Visualized paranasal sinuses and mastoid air cells normal. Orbits unremarkable. No skull fracture Procedure Note Poncho Moss MD - 03/13/2025 INDICATION: AMS CT head without contrast Comparison: 03/26/2024 Findings: No intracranial mass, midline shift, hydrocephalus, or acute hemorrhage. No CT evidence of acute ischemia. 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 Visualized paranasal sinuses and mastoid air cells normal. Orbits unremarkable. No skull fracture IMPRESSION: Impression: 1. No acute intracranial abnormalities. This document has been electronically signed by: Poncho Moss MD on 03/13/2025 20:04:04 us Vanessa Knight MD IMG CT PROCEDURES Final Result * Troponin I High Sensitivity (03/13/2025 6:10 PM EST) Only the most recent of2 resultswithin the time period is included. High Sensitivity Troponin I 14 <=53 ng/L 03/13/2025 6:56 PM EST [facility] Blood Venous blood specimen / Unknown Venipuncture / Unknown 03/13/2025 6:10 PM EST 03/13/2025 6:30 PM EST us Vanessa Knight MD LAB BLOOD ORDERABLES Final Resul t Performing Organization Address [facility] [place]/State/ZIP Co de Phone Number [facility] [address] [place] [address], [place] [phone] * APTT (03/13/2025 6:10 PM EST) aPTT 35.8 24.1 - 39.3 sec LAB COAGULATION METHOD 03/13/2025 6:44 PM EST [facility] Blood Venous blood specimen / Unknown Venipuncture / Unknown 03/13/2025 6:10 PM EST 03/13/2025 6:30 PM EST us Vanessa Knight MD LAB BLOOD ORDERABLES Final Resul t Performing Organization Address City/[facility] Co de Phone Number [facility] [address] [place] [address], [place] [phone] * (ABNORMAL) Protime-INR (03/13/2025 6:10 PM EST) Only the most recent of2 resultswithin the time period is included. Protime 16.9(H) 10.6 - 13.9 sec LAB COAGULATION METHOD 03/13/2025 6:44 PM EST [facility] INR 1.4 LAB COAGULATION METHOD 03/13/2025 6:44 PM EST [facility] Blood Venous blood specimen / Unknown Venipuncture / Unknown 03/13/2025 6:10 PM EST 03/13/2025 6:30 PM EST us Vanessa Knight MD LAB BLOOD ORDERABLES Final Resul t Performing Organization Address [facility] [place]/[facility] [[email or web address]] de Phone Number [facility] [address] [place] [address], [place] [phone] * Lipase (03/13/2025 6:10 PM EST) Pathologist [facility] Lipase 37 12 - 53 unit/L 03/13/2025 7:20 PM EST [facility] Blood Venous blood specimen / Unknown Venipuncture / Unknown 03/13/2025 6:10 PM EST 03/13/2025 6:30 PM EST us Vanessa Knight MD LAB BLOOD ORDERABLES Final Resul t Performing Organization Address City/[facility] Co de Phone Number [facility] [address] [place] [address], [place] [phone] * (ABNORMAL) Acetaminophen level (03/13/2025 6:10 PM EST) Acetaminophen Level <2.0(L) 10.0 - 30.0 mcg/mL 03/13/2025 7:17 PM EST [facility] Blood Venous blood specimen / Unknown Venipuncture / Unknown 03/13/2025 6:10 PM EST 03/13/2025 6:30 PM EST us Vanessa Knight MD LAB BLOOD ORDERABLES Final Resul t Performing Organization Address City/[facility]/ZIP Co de Phone Number [facility] [address] [place] [address], [place] [phone] * Salicylate Level (03/13/2025 6:10 PM EST) Salicylate Level <3.0 2.0 - 29.0 mg/dL 03/13/2025 7:20 PM EST [facility] Blood Venous blood specimen / Unknown Venipuncture / Unknown 03/13/2025 6:10 PM EST 03/13/2025 6:30 PM EST us Vanessa Knight MD LAB BLOOD ORDERABLES Final Resul t Performing Organization Address City/[facility]/ZIP Co de Phone Number [facility] [address] [place] [address], [place] [phone] * (ABNORMAL) Comprehensive metabolic panel (03/13/2025 6:10 PM EST) Only the most recent of11 resultswithin the time period is included. Sodium 132(L) 133 - 145 mmol/L 03/13/2025 7:31 PM EST [facility] Potassium 7.2(HH) 3.5 - 5.5 mmol/L 03/13/2025 7:31 PM EST [facility] Chloride 104 96 - 110 mmol/L 03/13/2025 7:31 PM EST [facility] CO2 21 21 - 32 mmol/L 03/13/2025 7:31 PM EST [facility] Anion Gap 7 3 - 11 03/13/2025 7:31 PM [facility] Glucose 102(H) 70 - 100 mg/dL 03/13/2025 7:31 PM [facility] BUN 03/13/2025 7:31 PM [facility] Creatinine 1.23 0.70 - 1.30 mg/dL 03/13/2025 7:31 PM [facility] eGFR 62 >=60 mL/min/1. 73m2 03/13/2025 7:31 PM [facility] Comment:Calculation based on the Chronic Kidney Disease Epidemiology Collaboration (CKD-EPI) equation refit without adjustment for race. Calcium 8.6 8.5 - 10.5 mg/dL 03/13/2025 7:31 PM [facility] AST (SGOT) 164(H) 10 - 42 unit/L 03/13/2025 7:31 PM [facility] ALT (SGPT) 36 10 - 60 unit/L 03/13/2025 7:31 PM [facility] Alkaline Phosphatase 369(H) 42 - 121 unit/L 03/13/2025 7:31 PM [facility] Total Protein 8.3(H) 6.0 - 8.0 g/dL 03/13/2025 7:31 PM [facility] Albumin 2.1(L) 3.2 - 5.0 g/dL 03/13/2025 7:31 PM [facility] Total Bilirubin 2.7(H) 0.0 - 1.4 mg/dL 03/13/2025 7:31 PM [facility] Blood Venous blood specimen / Unknown Venipuncture / Unknown 03/13/2025 6:10 PM EST 03/13/2025 6:30 PM EST us Vanessa Knight MD LAB BLOOD ORDERABLES Final Resul t [facility] ([facility] [address] [place] [address], [place] [phone] * XR Chest 1 View (03/13/2025 6:09 PM EST) Only the most recent of6 resultswithin the time period is included. Anatomical Region Laterality Modality Body Radiographic Marisol ging 03/14/2025 7:53 AM EST Impressions 03/14/2025 7:55 AM EST FINDINGS/IMPRESSION: Lungs are clear. No pleural effusion or pneumothorax. Cardiac silhouette is normal in size. Degenerative changes seen throughout the bones. -------- FINAL REPORT -------- Dictated By: MOE MOBLEY Dictated Date: 03/14/2025 07:53 ET Assigned Physician: MOE MOBLEY Reviewed and Electronically Signed By: MOE MOBLEY Signed Date: 03/14/2025 07:55 ET Workstation ID: [id number] Transcribed By: Self Edit Transcribed Date: 03/14/2025 07:53 ET Narrative 03/14/2025 7:55 AM EST XR CHEST 1 VIEW INDICATION: Altered mental status TECHNIQUE: XR CHEST 1 VIEW COMPARISON: 01/23/2025 Procedure Note Moe Mobley MD - 03/14/2025 XR CHEST 1 VIEW INDICATION: Altered mental status TECHNIQUE: XR CHEST 1 VIEW COMPARISON: 01/23/2025 IMPRESSION: FINDINGS/IMPRESSION: Lungs are clear. No pleural effusion orpneumothorax. Cardiac silhouette is normal in size. Degenerative changesseen throughout the bones. -------- FINAL REPORT -------- Dictated By: MOE MOBLEY Dictated Date: 03/14/2025 07:53 ET Assigned Physician: MOE MOBLEY Reviewed and Electronically Signed By: MOE MOBLEY Signed Date: 03/14/2025 07:55 ET Workstation ID: [id number] Transcribed By: Self Edit Transcribed Date: 03/14/2025 07:53 ET us Talon Bonilla MD IMG XR PROCEDURES Final Res ult * 12-Lead ECG (03/13/2025 5:00 PM EST) Only the most recent of2 resultswithin the time period is included. [facility] Ventricular Rate ECG 71 BPM GEMUSE Atrial Rate 71 BPM GEMUSE P-R Interval 148 ms GEMUSE QRS Duration 74 ms GEMUSE Q-T Interval 408 ms GEMUSE QTc 443 ms GEMUSE P Wave [place] 44 degrees GEMUSE R [place] -5 degrees GEMUSE T [place] 34 degrees GEMUSE ECG Interpretation Normal sinus rhythm Minimal voltage criteria for LVH, may be normal variant Borderline ECG When compared with ECG of 19-JAN-2025 18:20, Nonspecific T wave abnormality no longer evident in Lateral leads QT has shortened Confirmed by Myah SIFUENTES JOHN ([id number]) on 03/15/2025 2:25:50 PM GEMUSE 03/13/2025 5:00 PM EST 03/15/2025 2:25 PM EST Vanessa Knight MD ECG ORDERABLES Final Result GEMUSE * (ABNORMAL) Urinalysis with reflex microscopic and culture (03/13/2025 4:55 PM EST) Only the most recent of2 resultswithin the time period is included. [facility] Specific [place] Urine 1.025 1.003 - 1.030 LAB URINALYSIS - AUTOMATED METHOD 03/13/2025 5:33 PM [facility] pH, Urine 7.0 5.0 - 8.0 pH LAB URINALYSIS - AUTOMATED METHOD 03/13/2025 5:33 PM [facility] Leukocytes, Urine Trace(A) Negative LAB URINALYSIS - AUTOMATED METHOD 03/13/2025 5:33 PM [facility] Nitrite, Urine Negative Negative LAB URINALYSIS - AUTOMATED METHOD 03/13/2025 5:33 PM [facility] Protein, Urine Trace <=Trace mg/dL LAB URINALYSIS - AUTOMATED METHOD 03/13/2025 5:33 PM [facility] Glucose, Urine Negative Negative mg/dL LAB URINALYSIS - AUTOMATED METHOD 03/13/2025 5:33 PM [facility] Ketones, Urine Trace(A) Negative mg/dL LAB URINALYSIS - AUTOMATED METHOD 03/13/2025 5:33 PM [facility] Urobilinogen , Urine 1.0 0.2 - 1.0 mg/dL LAB URINALYSIS - AUTOMATED METHOD 03/13/2025 5:33 PM [facility] Bilirubin, Urine Small(A) Negative LAB URINALYSIS - AUTOMATED METHOD 03/13/2025 5:33 PM [facility] Blood, Urine Moderate(A) Negative LAB URINALYSIS - AUTOMATED METHOD 03/13/2025 5:33 PM [facility] RBC, Urine 20(H) 0 - 4 /HPF 03/13/2025 5:33 PM [facility] WBC, Urine 4 0 - 4 /HPF 03/13/2025 5:33 PM [facility] Squamous Epithelial, Urine 4 0 - 60 /LPF 03/13/2025 5:33 PM [facility] Crystals, Urine Light Amorphous Phosphate crystals. /LPF 03/13/2025 5:33 PM [facility] Bacteria, Urine Few(A) Negative /HPF 03/13/2025 5:33 PM [facility] Hyaline Casts, Urine 1 0 - 3 /LPF 03/13/2025 5:33 PM [facility] Urine Urine specimen obtained by clean catch procedure / Unknown Non-blood Collection / Unknown 03/13/2025 4:55 PM EST 03/13/2025 5:00 PM EST us Vanessa Knight MD LAB URINE ORDERABLES Final Resul t [facility] [address] [place] [address], [place] [phone] * Gan urine culture tube (03/13/2025 4:55 PM EST) Only the most recent of2 resultswithin the time period is included. Extra Tube Hold for add-ons. 03/13/2025 6:01 PM EST [facility] Comment:Auto resulted. Urine Urine specimen obtained by clean catch procedure / Unknown Non-blood Collection / Unknown 03/13/2025 4:55 PM EST 03/13/2025 5:00 PM EST us Vanessa Knight MD LAB URINE ORDERABLES Final Resul t [facility] [address] [place] [address], [place] [phone] * Culture urine (03/13/2025 4:55 PM EST) Only the most recent of2 resultswithin the time period is included. Culture, Urine No growth 03/14/2025 1:12 PM EST [facility] Urine Urine specimen obtained by clean catch procedure / Unknown Non-blood Collection / Unknown 03/13/2025 4:55 PM EST 03/13/2025 5:33 PM EST us Vanessa Knight MD LAB MICROBIOLOGY - GENERAL ORDER KEANU Final Result [facility] [address] [place] [address], [place] [phone] * Blood Culture, Peripheral #2 (03/13/2025 4:33 PM EST) Only the most recent of6 resultswithin the time period is included. Culture, Blood No growth at 5 days 03/18/2025 5:01 PM EST [facility] Blood Venous blood specimen / Unknown Venipuncture / Unknown 03/13/2025 4:33 PM EST 03/13/2025 4:52 PM EST us Vanessa Knight MD LAB MICROBIOLOGY - GENERAL ORDER KEANU Final Result Performing Organization Address [facility] [[email or web address]] de Phone Number [facility] [address] [place] [address], [place] [phone] * B-Type Natriuretic Peptide (BNP) (03/13/2025 4:33 PM EST) BNP 43 <=100 pcg/mL 03/13/2025 5:19 PM EST [facility] Blood Venous blood specimen / Unknown Venipuncture / Unknown 03/13/2025 4:33 PM EST 03/13/2025 4:53 PM EST Narrative [facility] - 03/13/2025 5:19 PM EST Over the counter supplements containing high doses of biotin may interfere with this assay. If interference is suspected, patients shoud be retested after refraining from biotin supplements for 72 hours. us Vanessa Knight MD LAB BLOOD ORDERABLES Final Resul t Performing Organization Address [facility] Co de Phone Number [facility] [address] [place] [address], [place] [phone] * (ABNORMAL) Venous blood gas (03/13/2025 4:33 PM EST) Only the most recent of2 resultswithin the time period is included. pH, Yang 7.47(H) 7.32 - 7.42 pH 03/13/2025 4:59 PM EST [facility] pCO2, Yang 33(L) 41 - 51 mmHg 03/13/2025 4:59 PM EST [facility] pO2, Yang 56(H) 25 - 40 mmHg 03/13/2025 4:59 PM EST [facility] HCO3, Venous 25.3 22.0 - 26.0 mmol/L 03/13/2025 4:59 PM EST [facility] O2 Sat, Yang 86.9 % 03/13/2025 4:59 PM EST [facility] Base Excess, Yang 1.1 -2.0 - 2.0 mmol/L 03/13/2025 4:59 PM EST [facility] Blood Venous blood specimen / Unknown Venipuncture / Unknown 03/13/2025 4:33 PM EST 03/13/2025 4:54 PM EST us Vanessa Knight MD LAB BLOOD ORDERABLES Final Resul t [facility] [address] [place] [address], [place] [phone] * OK CRITICAL CARE 30-74 MINUTES (03/13/2025 3:04 PM EST) Narrative Vanessa Knight MD - 03/13/2025 3:04 PM EST Vanessa Knight MD 03/13/2025 9:16 PM Critical Care Performed by: Vanessa Knight MD Authorized by: Vanessa Knight MD Critical care provider statement: Critical care time (minutes): 40 Total face to face critical care time (minutes): 40 Critical care time was exclusive of: Separately billable procedures and treating other patients Critical care was necessary to treat or prevent imminent or life-threatening deterioration of the following conditions: Metabolic crisis Critical care was time spent personally by me on the following activities: Development of treatment plan with patient or surrogate, discussions with consultants, evaluation of patient's response to treatment, ordering and review of laboratory studies, ordering and review of radiographic studies, re-evaluation of patient's condition, review of old charts, ordering and performing treatments and interventions and examination of patient I assumed direction of critical care for this patient from another provider in my specialty: no Care discussed with: admitting provider Comments: Hyperkalemia requiring immediate intervention to prevent further catastrophic endorgan dysfunction us Vanessa Knight MD IN CLINIC/BEDSIDE ORDERABLES Fin al Result * CT Chest wo Contrast (02/25/2025 2:43 PM EST) Only the most recent of3 resultswithin the time period is included. Anatomical Region Laterality Modality Body Computed Tomogra phy 03/04/2025 3:08 PM EST Impressions 03/04/2025 3:47 PM EST Impression: 1. Improved right lower lobe airspace consolidation with a decrease in size of the known right empyema, status post percutaneous drainage, since 01/24/25. 2. Improved right upper lobe airspace infiltrate and resolved left upper lobe groundglass infiltrates. 3. Persistent small left pleural effusion with mild dependent consolidation/atelectasis. [place] ([id number]) -------- FINAL REPORT -------- Dictated By: Yola Andersen Dictated Date: 03/04/2025 15:08 ET Assigned Physician: Yola Andersen Reviewed and Electronically Signed By: Yola Andersen Signed Date: 03/04/2025 15:47 ET Workstation ID: [id number] Transcribed By: Self Edit Transcribed Date: 03/04/2025 15:08 ET Narrative 03/04/2025 3:47 PM EST History: Follow-up status post pneumonia and empyema treatment for several weeks. Recurrent right pleural effusion. Comparison: 01/24/25, 01/19/25, 10/14/24 Technique: Helical volumetric imaging of the thorax was performed without IV contrast. DLP: For 68.00 mGy/cm 3225 films Barron Iterative reconstruction technique Findings: The trachea and central bronchial tree remain patent. A mixed groundglass and consolidative infiltrate in the anterior aspect of the right upper lobe shows significant partial clearing since the most recent study. Similarly, the large right lower lobe airspace consolidation noted previously has also partially cleared. There is mild juxtapleural consolidation at the base of the left lower lobe, mildly improved. Small left upper lobe groundglass infiltrates have cleared completely. A 4 mm solid, noncalcified nodule in the right upper lobe periphery (image 82 series 3) is unchanged. The right Pleurx catheter noted on the previous study is no longer seen. There is a trace residual right pleural effusion which has decreased in size and is accompanied by smooth pleural thickening. No pneumothorax is seen. A small left pleural effusion layers dependently and is without significant change. No developing pericardial effusion is seen. Mild multichamber cardiomegaly is without significant change. Severe, three- vessel coronary artery calcification is again noted. A 10 mm superior mediastinal lymph node is present posterior to the trachea (image 43 series 3), unchanged. No developing thoracic lymphadenopathy is seen. The thyroid gland is unremarkable. A small portion of the upper abdomen included on the lowest images through the thorax is remarkable for a cirrhotic hepatic configuration, cholelithiasis, and mild ascites. The ascites has increased since the previous study. Coarse calcifications are again seen in the right hepatic lobe, consistent with previous solid tumor ablations based on the 10/15/24 abdominal MRI. Large portosystemic collaterals are partially imaged in the left upper quadrant, unchanged. Flowing hyperostosis is seen along the anterior aspect of the spine. Procedure Note Yola Andersen MD - 03/04/2025 History: Follow-up status post pneumonia and empyema treatment for severalweeks. Recurrent right pleural effusion. Comparison: 01/24/25, 01/19/25, 10/14/24 Technique: Helical volumetric imaging of the thorax was performed withoutIV contrast. DLP: For 68.00 mGy/cm Aster[place] Iterative reconstruction technique Findings: The trachea and central bronchial tree remain patent. A mixed groundglassand consolidative infiltrate in the anterior aspect of the right upperlobe shows significant partial clearing since the most recent study.Similarly, the large right lower lobe airspace consolidation notedpreviously has also partially cleared. There is mild juxtapleuralconsolidation at the base of the left lower lobe, mildly improved. Smallleft upper lobe groundglass infiltrates have cleared completely. A 4 mm solid, noncalcified nodule in the right upper lobe periphery (image82 series 3) is unchanged. The right Pleurx catheter noted on the previous study is no longer seen.There is a trace residual right pleural effusion which has decreased insize and is accompanied by smooth pleural thickening. No pneumothorax isseen. A small left pleural effusion layers dependently and is withoutsignificant change. No developing pericardial effusion is seen. Mild multichamber cardiomegaly is without significant change. Severe,three- vessel coronary artery calcification is again noted. A 10 mmsuperior mediastinal lymph node is present posterior to the trachea (image43 series 3), unchanged. No developing thoracic lymphadenopathy is seen. The thyroid gland is unremarkable. A small portion of the upper abdomen included on the lowest images throughthe thorax is remarkable for a cirrhotic hepatic configuration,cholelithiasis, and mild ascites. The ascites has increased since theprevious study. Coarse calcifications are again seen in the right hepaticlobe, consistent with previous solid tumor ablations based on the 10/15/24abdominal MRI. Large portosystemic collaterals are partially imaged in theleft upper quadrant, unchanged. Flowing hyperostosis is seen along the anterior aspect of the spine. IMPRESSION: Impression: 1. Improved right lower lobe airspace consolidation with a decrease insize of the known right empyema, status post percutaneous drainage, since01/24/25. 2. Improved right upper lobe airspace infiltrate and resolved left upperlobe groundglass infiltrates. 3. Persistent small left pleural effusion with mild dependentconsolidation[place] ([id number]) -------- FINAL REPORT -------- Dictated By: Yola Andersen Dictated Date: 03/04/2025 15:08 ET Assigned Physician: Yola Andersen Reviewed and Electronically Signed By: Yola Andersen Signed Date: 03/04/2025 15:47 ET Workstation ID: [id number] Transcribed By: Self Edit Transcribed Date: 03/04/2025 15:08 ET Siomara Lora MD IMG CT PROCEDURES Final Re sult * Hemoglobin A1c (02/25/2025 2:12 PM EST) Hemoglobin A1C <4.2 <6.5 % LAB CHEMISTRY METHOD 02/25/2025 9:20 PM EST [facility] Mean Bld Glu Estim. LAB CHEMISTRY METHOD 02/25/2025 9:20 PM EST [facility] Comment:Unable to calculate due to HgB A1C being outside of the reportable range Blood Venous blood specimen / Unknown Venipuncture / Unknown 02/25/2025 2:12 PM EST 02/25/2025 4:08 PM EST Danny Angel MD LAB BLOOD ORDERABLES Final Result [facility] [address] [place] [address], [place] [phone] * Calcium, ionized (02/25/2025 2:12 PM EST) Only the most recent of2 resultswithin the time period is included. Calcium Ionized 5.0 4.6 - 5.4 mg/dL 02/28/2025 8:22 AM EST [facility] Comment: Test performed at [facility], [address], [place] [address] Rachna Rodriguez MD, PhD - [employer] Specialist Blood Venous blood specimen / Unknown Venipuncture / Unknown 02/25/2025 2:12 PM EST 02/25/2025 4:06 PM EST Danny Angel MD LAB BLOOD ORDERABLES Final Result [facility] [address] [place] [address] * TRANSTHORACIC ECHOCARDIOGRAM (TTE) COMPLETE W/ CONTRAST (02/14/2025 3:34 PM EST) Left Atrium Minor [place] 6.7 cm CV PACS Left Atrium Major [place] 6.9 cm CV PACS LA Area Sys (A2C) 27 cm2 CV PACS LA Area Sys (A4C) 25 cm2 CV PACS LA Volume (BP) 79 mL CV PACS RA Area 19.1 cm2 CV PACS RA 2D Volume 50 mL CV PACS AV Mean Gradient 7 mmHg CV PACS AV Mean Gradient 7 mmHg CV PACS Ao VTI 32.6 cm CV PACS AV Peak Derek 1.7 m/s CV PACS AV Peak Gradient 12 mmHg CV PACS AV Area Peak Velocity 2.1 cm2 CV PACS Aortic Sinus Valsalva 3.5 cm CV PACS Ascending Aorta 3.5 cm CV PACS IVSD 0.7 0.6 - 1.0 cm CV PACS LVIDD 5.6 4.2 - 5.8 cm CV PACS LVIDS 3.0 2.5 - 4.0 cm CV PACS LVOT Diameter 2.0 cm CV PACS LVOT Mean Derek 0.7 m/s CV PACS LVOT Mean Grad 3 mmHg CV PACS LVOT Peak VTI 26.1 cm CV PACS LVOT Peak VTI 26.1 cm CV PACS LVOT Peak Derek 1.2 m/s CV PACS LVOT Peak Gradient 5 mmHg CV PACS LVPWD 0.9 0.6 - 1.0 cm CV PACS MV E' Tissue Velocity Lateral 14 cm/s CV PACS MV E' Tissue Velocity Septal 8 cm/s CV PACS LVOT Area 3.1 cm2 CV PACS LVOT Stroke Volume 82 mL CV PACS E Wave Deceleration Time 194 119 - 242 ms CV PACS MV Peak A Derek 0.76 m/s CV PACS MV Peak E Derek 0.59 m/s CV PACS MV Mean Gradient 2 mmHg CV PACS MV VTI 25.6 cm CV PACS Mitral Valve Max Velocity 0.8 m/s CV PACS MV Peak Gradient 3 mmHg CV PACS PV Acceleration Time 151 ms CV PACS PV Acceleration Time 173 ms CV PACS PV Acceleration Time 162 ms CV PACS RV Diastolic Basal Dimension 4.1 2.5 - 4.1 cm CV PACS RV S' 18 cm/s CV PACS TAPSE 22 mm CV PACS TR Peak Velocity 2.81 m/s CV PACS TR Peak Gradient 32 mmHg CV PACS E/E' Ratio Septal 7 CV PACS E/E' Ratio Averaged 6 CV PACS Relative Wall Thickness ratio 0.32 CV PACS FS 46 % CV PACS LV Mass 2D 165 g CV PACS LVOT flow 220 mL/s CV PACS AV Velocity Ratio 0.71 CV PACS E/A Ratio 0.8 CV PACS E/E' Ratio Lateral 4 CV PACS BSA 2.05 m2 CV PACS LA Volume Index (BP) 39 mL/m2 CV PACS LVIDD Index 2.77 cm/m2 CV PACS LVIDS Index 1.49 cm/m2 CV PACS LV Mass Index 2D 82 50 - 102 g/m2 CV PACS LVOT Stroke Index 41 mL/m2 CV PACS RA 2D Volume Index 25 18 - 32 mL/m2 CV PACS YOLIE Index (Pk Derek) 1.04 cm2/m2 CV PACS Ascending Aorta Index 1.73 cm/m2 CV PACS Right Ventricular Peak Systolic Pressure 35 mmHg CV PACS Est. RA Pressure 3 mmHg CV PACS Anatomical Region Laterality Modality Ultrasound Narrative 02/17/2025 11:21 AM EST Left ventricle cavity size is normal. Wall thickness is normal. Systolic function is normal with an ejection fraction of 55-60%. There are no regional LV wall motion abnormalities. There is no diastolic dysfunction. Right ventricle cavity is normal. Right ventricular systolic function is normal. The left atrium is mildly enlarged. No hemodynamically significant valve disease. Compared to 2022, no significant change. Left Ventricle Left ventricle cavity size is normal. Wall thickness is normal. Systolic function is normal with an ejection fraction of 55-60%. There are no regional LV wall motion abnormalities. There is no diastolic dysfunction. Right Ventricle Right ventricle cavity appears normal. Systolic function is normal. Left Atrium Left atrium cavity is mildly dilated. Right Atrium Right atrium cavity is normal. IVC/SVC Inferior vena cava structure is normal. RA pressures is estimated to be 3 mmHg (IVC diameter <21 mm and decreases >50% during inspiration). Mitral Valve The leaflets are mildly thickened. There is trace regurgitation. There is no evidence of mitral valve stenosis. Tricuspid Valve Tricuspid valve structure is normal. There is trace to mild regurgitation. There is no evidence of tricuspid valve stenosis. Aortic Valve The aortic valve is trileaflet. The leaflets are mildly thickened. There is no significant regurgitation. There is no evidence of aortic valve stenosis. Pulmonic Valve Visualized portions of the pulmonic valve appear normal. There is mild pulmonic valve regurgitation. There is no evidence of pulmonic valve stenosis. Ascending Aorta The aorta appears normal in size. Pericardium Pericardium appears normal. There is no pericardial effusion. Study Details Overall the study quality was suboptimal. Definity contrast was given to enhance imaging. Study was difficult due to: poor endocardial visualization. Wall Scoring Baseline Score Index: 1.00 The left ventricular wall motion is normal. us Siomara Lora MD CV ECHO PROCEDURES Final R esult * Lavender tube (01/28/2025 6:16 AM EDT) Only the most recent of2 resultswithin the time period is included. [facility] Extra Tube Hold for add-ons. 01/28/2025 8:01 AM EDT [facility] Comment:Auto resulted. Blood Venous blood specimen / Unknown Venipuncture / Unknown 01/28/2025 6:16 AM EDT 01/28/2025 6:28 AM EDT us Eric Tafoya MD LAB BLOOD ORDERABLES Final Resul t [facility] [address] [place] [address], [place] [phone] * (ABNORMAL) Manual differential (01/27/2025 5:51 AM EDT) Only the most recent of3 resultswithin the time period is included. [facility] Neutrophils % 62.0 % LAB HEMETOLOGY METHOD 01/27/2025 8:28 AM EDT [facility] Lymphocytes % 33.0 % LAB HEMETOLOGY METHOD 01/27/2025 8:28 AM EDT [facility] Monocytes % 4.0 % LAB HEMETOLOGY METHOD 01/27/2025 8:28 AM EDT [facility] Eosinophils % 1.0 % LAB HEMETOLOGY METHOD 01/27/2025 8:28 AM EDT [facility] Basophils % 0.0 % LAB HEMETOLOGY METHOD 01/27/2025 8:28 AM EDT [facility] Neutrophils Absolute Manual 5.33 1.50 - 7.00 K/mcL LAB HEMETOLOGY METHOD 01/27/2025 8:28 AM EDT [facility] Lymphocytes Absolute 2.84 1.00 - 5.00 K/mcL LAB HEMETOLOGY METHOD 01/27/2025 8:28 AM EDT [facility] Monocytes Absolute Manual 0.34 0.20 - 1.00 K/mcL LAB HEMETOLOGY METHOD 01/27/2025 8:28 AM EDT [facility] Eosinophils Absolute Manual 0.09 0.00 - 0.50 K/mcL LAB HEMETOLOGY METHOD 01/27/2025 8:28 AM EDT [facility] Basophils Absolute Manual 0.00 0.00 - 0.20 K/mcL LAB HEMETOLOGY METHOD 01/27/2025 8:28 AM EDT [facility] Rbc Morphology Consistent with indices Consistent with indices, Normal for LAB HEMETOLOGY METHOD 01/27/2025 8:28 AM EDT [facility] Platelet Morphology - WAM Normal Normal [facility] 01/27/2025 8:28 AM EDT [facility] Target Cells Present 5 - 10%(A) (none) [facility] 01/27/2025 8:28 AM EDT [facility] Blood Venous blood specimen / Unknown Venipuncture / Unknown 01/27/2025 5:51 AM EDT 01/27/2025 6:18 AM EDT Genesis JAY LAB BLOOD ORDERABLES Final Result [facility] [address] [place] [address], * XR Chest 2 Views (01/22/2025 9:36 AM EDT) Anatomical Region Laterality Modality Body Radiographic Marisol ging 01/22/2025 9:45 AM EDT Impressions 01/22/2025 9:52 AM EDT Interval improvement in pleural effusion inferolaterally along the right lower lobe compared to study from January 19, 2025. Persistent atelectasis and/or infiltrates with residual small loculated effusion suspected. -------- FINAL REPORT -------- Dictated By: Benito Marshall Dictated Date: 01/22/2025 09:45 ET Assigned Physician: Benito Marshall Reviewed and Electronically Signed By: Benito Marshall Signed Date: 01/22/2025 09:52 ET Workstation ID: [id number] Transcribed By: Self Edit Transcribed Date: 01/22/2025 09:45 ET Narrative 01/22/2025 9:52 AM EDT INDICATION: Status post drainage of right-sided empyema FINDINGS: Two views of the chest were obtained. Compared to multiple prior studies most recent from January 21, 2025 at 5:[address] from January 19, 2025 reviewed. Lung york hypoinflated. Pleural parenchymal attenuation noted along the right perihilar region and lower lung most likely represents a combination of atelectasis and/or infiltrates with loculated effusion better visualized on chest CT from January 19, 2025. There is overall reduction in pleural effusion inferolaterally when compared to portable chest radiograph from January 19, 2025. Similar position of right-sided chest tube. No pneumothorax or pneumomediastinum. Cardiomediastinal silhouette is enlarged but grossly unchanged shape. Bony structures are within normal limits for the patient's age. Procedure Note Benito Marshall MD - 01/22/2025 INDICATION: Status post drainage of right-sided empyema FINDINGS: Two views of the chest were obtained. Compared to multiple priorstudies most recent from January 21, 2025 at 5:[address] fromJanuary 19, 2025 reviewed. Lung york hypoinflated. Pleural parenchymal attenuation noted along the right perihilar region andlower lung most likely represents a combination of atelectasis and/orinfiltrates with loculated effusion better visualized on chest CT fromJanuary 19, 2025. There is overall reduction in pleural effusioninferolaterally when compared to portable chest radiograph from 2024. Similar position of right-sided chest tube. No pneumothorax orpneumomediastinum. Cardiomediastinal silhouette is enlarged but grossly unchanged shape. Bony structures are within normal limits for the patient's age. IMPRESSION: Interval improvement in pleural effusion inferolaterally along the rightlower lobe compared to study from January 19, 2025. Persistent atelectasisand/or infiltrates with residual small loculated effusion suspected. -------- FINAL REPORT -------- Dictated By: Benito Marshall Dictated Date: 01/22/2025 09:45 ET Assigned Physician: Benito Marshall Reviewed and Electronically Signed By: Benito Marshall Signed Date: 01/22/2025 09:52 ET Workstation ID: [id number] Transcribed By: Self Edit Transcribed Date: 01/22/2025 09:45 ET us Char JAY IMG XR PROCEDURES Final Resul t * TRANSTHORACIC ECHOCARDIOGRAM (TTE) COMPLETE W/ CONTRAST (01/21/2025 11:41 AM EDT) Left Atrium Minor [place] 5.2 cm CV PACS Left Atrium Major [place] 5.8 cm CV PACS LA Area Sys (A2C) 19 cm2 CV PACS LA Area Sys (A4C) 19 cm2 CV PACS LA Volume (BP) 55 mL CV PACS RA Area 17.7 cm2 CV PACS RA 2D Volume 48 mL CV PACS AV Mean Gradient 4 mmHg CV PACS Ao VTI 30.1 cm CV PACS AV Peak Derek 1.4 m/s CV PACS AV Peak Gradient 8 mmHg CV PACS AV Area Continuity Equation 2.5 cm2 CV PACS AV Area Peak Velocity 2.8 cm2 CV PACS Aortic Arch 3.2 cm CV PACS Ascending Aorta 3.3 cm CV PACS Aortic Sinus Valsalva 3.7 cm CV PACS IVC Proximal 2.3 cm CV PACS IVSD 0.9 0.6 - 1.0 cm CV PACS LVIDD 5.3 4.2 - 5.8 cm CV PACS LVIDS 3.6 2.5 - 4.0 cm CV PACS LVOT Diameter 2.1 cm CV PACS LVOT Mean Derek 0.7 m/s CV PACS LVOT Mean Grad 2 mmHg CV PACS LVOT Peak VTI 22.1 cm CV PACS LVOT Peak Derek 1.1 m/s CV PACS LVOT Peak Gradient 5 mmHg CV PACS LVPWD 1.0 0.6 - 1.0 cm CV PACS MV E' Tissue Velocity Lateral 12 cm/s CV PACS MV E' Tissue Velocity Septal 8 cm/s CV PACS LVOT Area 3.5 cm2 CV PACS LVOT Stroke Volume 76 mL CV PACS MV Deceleration [place] 4.2 m/s2 CV PACS E Wave Deceleration Time 207 119 - 242 ms CV PACS MV PHT 61 ms CV PACS MV Peak A Derek 0.52 m/s CV PACS MV Peak E Derek 0.87 m/s CV PACS MV Area PHT 3.6 cm2 CV PACS PV Acceleration Time 129 ms CV PACS PV Acceleration Time 129 ms CV PACS RV Diastolic Basal Dimension 3.7 2.5 - 4.1 cm CV PACS RV S' 15 cm/s CV PACS TAPSE 21 mm CV PACS TR Peak Velocity 3.03 m/s CV PACS TR Peak Gradient 37 mmHg CV PACS E/E' Ratio Septal 11 CV PACS E/E' Ratio Averaged 9 CV PACS LVOT Stroke Index 38 mL/m2 CV PACS Relative Wall Thickness ratio 0.38 CV PACS LVOT:AV VTI Index 0.73 CV PACS FS 32 % CV PACS LV Mass 2D 187 g CV PACS Ascending Aorta Index 1.63 cm/m2 CV PACS LVOT flow 242 mL/s CV PACS RA 2D Volume Index 24 mL/m2 CV PACS YOLIE Index (VTI) 1.26 cm2/m2 CV PACS YOLIE Index (Pk Derek) 1.39 cm2/m2 CV PACS LVIDD Index 2.62 cm/m2 CV PACS LVIDS Index 1.78 cm/m2 CV PACS AV Velocity Ratio 0.79 CV PACS E/A Ratio 1.7 CV PACS E/E' Ratio Lateral 7 CV PACS LA Volume Index (BP) 27 mL/m2 CV PACS LV Mass Index 2D 93 g/m2 CV PACS BSA 2.04 m2 CV PACS Right Ventricular Peak Systolic Pressure 52 mmHg CV PACS Est. RA Pressure 15 mmHg CV PACS Anatomical Region Laterality Modality Ultrasound Narrative 01/21/2025 1:41 PM EDT Left ventricle cavity size is normal. Left ventricular systolic function is in the normal range with an ejection fraction of 55-60%. Definity contrast used to delineate endocardial borders No regional LV wall motion abnormalities noted. Right ventricle cavity is normal. Right ventricular systolic function is normal. No hemodynamically significant valvular lesions identified mild tricuspid insufficiency. Trace mitral insufficiency. No evidence of pulmonary hypertension Left Ventricle Left ventricle cavity size is normal. Left ventricular wall thickness at upper limits of normal. Systolic function is normal with an ejection fraction of 55-60%. There are no regional LV wall motion abnormalities. There is no diastolic dysfunction. Right Ventricle Right ventricle cavity appears normal. Systolic function is normal. Left Atrium Left atrium cavity size is normal. Right Atrium Right atrium cavity is normal. IVC/SVC RA pressures is estimated to be 15 mmHg (IVC diameter >21 mm and decreases <50% during inspiration). Mitral Valve The leaflets are mildly thickened. There is annular calcification. There is trace regurgitation. There is no evidence of mitral valve stenosis. Tricuspid Valve Tricuspid valve structure is normal. There is mild regurgitation. There is no evidence of tricuspid valve stenosis. The right ventricular systolic pressure is elevated at 52 mmHg. Aortic Valve The aortic valve is trileaflet. There is no regurgitation or stenosis. Pulmonic Valve Pulmonic valve structure is normal. There is trace to mild pulmonic valve regurgitation. There is no evidence of pulmonic valve stenosis. Ascending Aorta The aorta appears normal in size. Transverse aorta 3.2 cm. Pericardium There is an anterior fat pad. There is no pericardial effusion. Study Details Overall the study quality was technically difficult. Definity contrast was given to enhance imaging. Study was difficult due to: procedure performed with the patient in a supine position. us Keny Ku MD CV ECHO PROCEDURES Fin al Result * Lactate (01/21/2025 7:56 AM EDT) Only the most recent of4 resultswithin the time period is included. Lactate 1.7 0.4 - 2.0 mmol/L LAB CHEMISTRY METHOD 01/21/2025 8:54 AM EDT [facility] Blood Venous blood specimen / Unknown Venipuncture / Unknown 01/21/2025 7:56 AM EDT 01/21/2025 8:02 AM EDT us Keny Ku MD LAB BLOOD ORDERABLES F inal Result [facility] [address] [place] [address], [place] [phone] * (ABNORMAL) Vancomycin, trough (01/21/2025 6:13 AM EDT) [facility] Vancomycin Trough 20.9(H) 10.0 - 20.0 mcg/mL LAB CHEMISTRY METHOD 01/21/2025 7:52 AM EDT [facility] Blood Venous blood specimen / Unknown Venipuncture / Unknown 01/21/2025 6:13 AM EDT 01/21/2025 6:50 AM EDT Keny Ku MD LAB BLOOD ORDERABLES F inal Result Performing Organization Address [facility] [place]/[facility]/ZIP Co de Phone Number [facility] [address] [place] [address], [place] [phone] * (ABNORMAL) RBC morphology review (01/21/2025 6:10 AM EDT) [facility] Rbc Morphology Consistent with indices Consistent with indices, Normal for LAB HEMETOLOGY METHOD 01/21/2025 10:32 AM EDT [facility] Platelet Morphology - WAM See Note(A) Normal LAB HEMETOLOGY METHOD 01/21/2025 10:32 AM EDT [facility] Comment:PLT: Normal Blood Venous blood specimen / Unknown 01/21/2025 6:10 AM EDT 01/21/2025 7:20 AM EDT us Char JAY LAB BLOOD ORDERABLES Final Re sult [facility] [address] [place] [address], [place] [phone] * Cell count with reflex differential, body fluid (01/20/2025 1:52 AM EDT) Only the most recent of2 resultswithin the time period is included. Body Fluid Total Nucleated Cells 46,770 /mm3 LAB HEMETOLOGY METHOD 01/20/2025 3:57 AM EDT [facility] Body Fluid RBC 10,000 /mm3 LAB HEMETOLOGY METHOD 01/20/2025 3:57 AM EDT [facility] Body Fluid Color Yellow LAB HEMETOLOGY METHOD 01/20/2025 3:57 AM EDT [facility] Body Fluid Clarity Hazy LAB HEMETOLOGY METHOD 01/20/2025 3:57 AM EDT [facility] Body Fluid Source [facility] 01/20/2025 3:57 AM EDT [facility] Pleural Fluid Non-blood Collection / Unknown 01/20/2025 1:52 AM EDT 01/20/2025 1:57 AM EDT Narrative [facility] - 01/20/2025 3:57 AM EDT No reference ranges have been established for body fluids. Clinical correlation recommended. us Riki Schumacher MD LAB BODY FLUIDS AND STOOLS ORD ERABLES Final Result [facility] [address] [place] [address], [place] [phone] * (ABNORMAL) Culture body fluid with gram stain (01/20/2025 1:52 AM EDT) Only the most recent of2 resultswithin the time period is included. Fluid Culture Methicillin-Sensiti ve Staphylococcus aureus(A) NICHO 01/23/2025 8:24 AM EDT [facility] Comment: The organism value for this result has been updated. These results have been appended to the previously preliminary verified report. Edited result: Previously reported as Staphylococcus aureus on 01/21/2025 at 0811 EDT. Gram Stain Result Few Gram positive cocci in pairs(A) 01/23/2025 8:24 AM EDT [facility] Gram Stain Result Many Polymorphonuclear leukocytes(A) 01/23/2025 8:24 AM EDT [facility] Gram Stain Result None Epithelial cells(A) 01/23/2025 8:24 AM EDT [facility] Pleural Fluid Structure of right pleural cavity / Unknown Non-blood Collection / Unknown 01/20/2025 1:52 AM EDT 01/20/2025 1:57 AM EDT Narrative Organism Antibiotic Method Susceptibility Methicillin-Sensitive Staphylococcus aureus Benzylpenicillin NICHO >=0.5 ug/ml: Resistant Methicillin-Sensitive Staphylococcus aureus Oxacillin NICHO <=0.25 ug/ml: Susceptible Methicillin-Sensitive Staphylococcus aureus Gentamicin NICHO <=0.5 ug/ml: Susceptible Methicillin-Sensitive Staphylococcus aureus Ciprofloxacin NICHO 1 ug/ml: Susceptible Methicillin-Sensitive Staphylococcus aureus Levofloxacin NICHO 0.5 ug/ml: Susceptible Methicillin-Sensitive Staphylococcus aureus Moxifloxacin NICHO <=0.25 ug/ml: Susceptible Methicillin-Sensitive Staphylococcus aureus Erythromycin NICHO >=8 ug/ml: Resistant Methicillin-Sensitive Staphylococcus aureus Clindamycin NICHO <=0.25 ug/ml: Resistant Methicillin-Sensitive Staphylococcus aureus Quinupristin/Dalfopristin NICHO 0.5 ug/ml: Susceptible Methicillin-Sensitive Staphylococcus aureus Linezolid NICHO 2 ug/ml: Susceptible Methicillin-Sensitive Staphylococcus aureus Vancomycin NICHO <=0.5 ug/ml: Susceptible Methicillin-Sensitive Staphylococcus aureus Tetracycline NICHO <=1 ug/ml: Susceptible Methicillin-Sensitive Staphylococcus aureus Rifampin NICHO <=0.5 ug/ml: Susceptible Methicillin-Sensitive Staphylococcus aureus Trimethoprim/Sulfamethoxazo le NICHO <=10 ug/ml: Susceptible Tita JAY LAB MICROBIOLOGY - GENERAL ORDE LATESHA Final Result [facility] [address] [place] [address], * Differential body fluid (01/20/2025 1:52 AM EDT) Only the most recent of2 resultswithin the time period is included. Fluid Neutrophils % 85 % LAB HEMETOLOGY METHOD 01/20/2025 3:58 AM EDT [facility] Fluid Lymphocytes % 3 % LAB HEMETOLOGY METHOD 01/20/2025 3:58 AM EDT [facility] Fluid Monocytes/Macro phages 12 % LAB HEMETOLOGY METHOD 01/20/2025 3:58 AM EDT [facility] Pleural Fluid Non-blood Collection / Unknown 01/20/2025 1:52 AM EDT 01/20/2025 1:57 AM EDT Narrative [facility] - 01/20/2025 3:58 AM EDT No reference ranges have been established for body fluids. Clinical correlation recommended. Riki Schumacher MD LAB BODY FLUIDS AND STOOLS ORD ERABLES Final Result Performing Organization Address [facility] [place]/[facility] Co de Phone Number [facility] [address] [place] [address], [place] [phone] * Pathology review, body fluid (01/20/2025 1:52 AM EDT) Pathologist review Body Fluid Pleural fluid-cytocentr ifuge preparation: -COCCI PRESENT -Acute inflammation, consistent with empyema -Correlation with microbiology results is needed Taylor Graf MD 01/20/2025 9:26 AM EDT [facility] Pleural Fluid Non-blood Collection / Unknown 01/20/2025 1:52 AM EDT 01/20/2025 1:57 AM EDT Riki Schumacher MD LAB BODY FLUIDS AND STOOLS ORD ERABLES Final Result Performing Organization Address [facility] [place]/[facility]/ZIP Co de Phone Number [facility] [address] [place] [address], [place] [phone] * Protein, body fluid (01/20/2025 1:52 AM EDT) Only the most recent of2 resultswithin the time period is included. Protein, Fluid 3.4 See Comment g/dL LAB CHEMISTRY METHOD 01/20/2025 2:30 AM EDT [facility] Pleural Fluid Structure of right pleural cavity / Unknown Non-blood Collection / Unknown 01/20/2025 1:52 AM EDT 01/20/2025 1:57 AM EDT Narrative [facility] - 01/20/2025 2:30 AM EDT No reference ranges have been established for body fluids. Clinical correlation recommended. [employer] LAB BODY FLUIDS AND STOOLS ORDE RABLES Final Result Performing Organization Address [facility] [place]/[facility]/ZIP Co de Phone Number [facility] [address] [place] [address], [place] [phone] * Lactate dehydrogenase, body fluid (01/20/2025 1:52 AM EDT) Only the most recent of2 resultswithin the time period is included. [facility] LD, Fluid 443 See Comment unit/L LAB CHEMISTRY METHOD 01/20/2025 2:30 AM EDT [facility] Pleural Fluid Structure of right pleural cavity / Unknown Non-blood Collection / Unknown 01/20/2025 1:52 AM EDT 01/20/2025 1:57 AM EDT Narrative [facility] - 01/20/2025 2:30 AM EDT No reference ranges have been established for body fluids. Clinical correlation recommended. [employer] LAB BODY FLUIDS AND STOOLS ORDE RABLES Final Result Performing Organization Address City/[facility]/ZIP Co de Phone Number [facility] [address] [place] [address], [place] [phone] * Glucose, body fluid (01/20/2025 1:52 AM EDT) Only the most recent of2 resultswithin the time period is included. [facility] Glucose, Fluid <1 See Comment mg/dL LAB CHEMISTRY METHOD 01/20/2025 4:13 PM EDT [facility] Pleural Fluid Structure of right pleural cavity / Unknown Non-blood Collection / Unknown 01/20/2025 1:52 AM EDT 01/20/2025 1:57 AM EDT Narrative [facility] - 01/20/2025 4:13 PM EDT No reference ranges have been established for body fluids. Clinical correlation recommended. Talon JAY LAB BODY FLUIDS AND STOO LS ORDERABLES Final Result [facility] [address] [place] [address], [place] [phone] * Albumin, body fluid (01/20/2025 1:52 AM EDT) Only the most recent of2 resultswithin the time period is included. Albumin, Fluid 0.8 See Comment g/dL LAB CHEMISTRY METHOD 01/20/2025 2:30 AM EDT [facility] Pleural Fluid Structure of right pleural cavity / Unknown Non-blood Collection / Unknown 01/20/2025 1:52 AM EDT 01/20/2025 1:57 AM EDT Narrative [facility] - 01/20/2025 2:30 AM EDT No reference ranges have been established for body fluids. Clinical correlation recommended. Tita JAY LAB BODY FLUIDS AND STOOLS ORDE RABNICHELLE Final Result [facility] [address] [place] [address], [place] [phone] * Non-gynecologic cytology (01/20/2025 1:52 AM EDT) Only the most recent of2 resultswithin the time period is included. Final Diagnosis A. Pleural Fluid, Right, Thoracentesis, (ThinPrep, cell block): Negative for malignant cells. Abundant acute inflammatory cells are present. 01/23/2025 8:15 AM EDT [facility] at 0815 EDT Specimen A Adequacy Satisfactory for evaluation 01/23/2025 8:15 AM EDT [facility] Gross Description A. Pleural Cavity, Right, Pleural fluid: Received is 100 ml of cloudy orange fluid. One ThinPrep and one cell block are made. Cell block placed in formalin at 1200, total formalin fixation time is 9 hours. rp 01/23/2025 8:15 AM EDT [facility] Disclaimer Unless otherwise specified, all tissue is 10% NB formalin fixed and paraffin embedded. Technical cytopathology services provided by [facility], at [address] [place] [address] (CLIA # [id number]/Jaylon Graf MD, Event Lighting Specialist.) 01/23/2025 8:15 AM EDT [facility] Pleural Fluid Structure of right pleural cavity / Unknown Non-blood Collection / Unknown 01/20/2025 1:52 AM EDT 01/22/2025 11:38 AM EDT us Tita JAY LAB CYTOLOGY ORDERABLES Final R esult [facility] [address] [place] [address], * MRSA molecular study (01/19/2025 7:55 PM EDT) MRSA Screen PCR Not Detected Not Detected LAB MICROBIOLOGY METHOD 01/19/2025 9:29 PM EDT [facility] Swab Both anterior nares / Unknown Non-blood Collection / Unknown 01/19/2025 7:55 PM EDT 01/19/2025 7:57 PM EDT us Lynne Guerra DO LAB MICROBIOLOGY - GENERAL OR DERABLES Final Result [facility] [address] [place] [address], * Respiratory virus panel molecular study (01/19/2025 5:57 PM EDT) Adenovirus Detection by PCR Not Detected Not Detected LAB MICROBIOLOGY METHOD 01/19/2025 6:59 PM EDT [facility] Influenza A PCR Not Detected Not Detected LAB MICROBIOLOGY METHOD 01/19/2025 6:59 PM EDT [facility] Influenza B PCR Not Detected Not Detected LAB MICROBIOLOGY METHOD 01/19/2025 6:59 PM EDT [facility] Coronavirus 229E Not Detected Not Detected LAB MICROBIOLOGY METHOD 01/19/2025 6:59 PM EDT [facility] Coronavirus HKU1 Not Detected Not Detected LAB MICROBIOLOGY METHOD 01/19/2025 6:59 PM EDT [facility] Coronavirus OC43 Not Detected Not Detected LAB MICROBIOLOGY METHOD 01/19/2025 6:59 PM EDT [facility] Coronavirus NL63 Not Detected Not Detected LAB MICROBIOLOGY METHOD 01/19/2025 6:59 PM EDT [facility] Parainfluenza Virus 1 Not Detected Not Detected LAB MICROBIOLOGY METHOD 01/19/2025 6:59 PM EDT [facility] Parainfluenza Virus 2 Not Detected Not Detected LAB MICROBIOLOGY METHOD 01/19/2025 6:59 PM EDT [facility] Parainfluenza Virus 3 Not Detected Not Detected LAB MICROBIOLOGY METHOD 01/19/2025 6:59 PM EDT [facility] Parainfluenza Virus 4 Not Detected Not Detected LAB MICROBIOLOGY METHOD 01/19/2025 6:59 PM EDT [facility] RSV PCR Not Detected Not Detected LAB MICROBIOLOGY METHOD 01/19/2025 6:59 PM EDT [facility] Human Metapneumovirus A and B Not Detected Not Detected LAB MICROBIOLOGY METHOD 01/19/2025 6:59 PM EDT [facility] Rhinovirus/Entero virus Not Detected Not Detected LAB MICROBIOLOGY METHOD 01/19/2025 6:59 PM EDT [facility] Bordetella pertussis Not Detected Not Detected LAB MICROBIOLOGY METHOD 01/19/2025 6:59 PM EDT [facility] Bordetella parapertussis Not Detected Not Detected LAB MICROBIOLOGY METHOD 01/19/2025 6:59 PM EDT [facility] Mycoplasma pneumo by PCR Not Detected Not Detected LAB MICROBIOLOGY METHOD 01/19/2025 6:59 PM EDT [facility] Chlamydia pneumoniae Not Detected Not Detected LAB MICROBIOLOGY METHOD 01/19/2025 6:59 PM EDT [facility] SARS COV-2 Not Detected Not Detected LAB MICROBIOLOGY METHOD 01/19/2025 6:59 PM EDT [facility] Swab Both anterior nares / Unknown Non-blood Collection / Unknown 01/19/2025 5:57 PM EDT 01/19/2025 6:03 PM EDT [facility] - 01/19/2025 6:59 PM EDT Testing was performed using the [employer] Respiratory Pathogen PCR Assay. All results must be correlated with the clinical findings. Results should not be used as the sole basis for diagnosis. False Negative results may occur from the presence of sequence variants in the region targeted by the assay or the presence of inhibitors. Results may be affected by concurrent antiviral/antimicrobial therapy or levels of organisms that are below the limit of detection. us Ahmet Hutchinson MD LAB MICROBIOLOGY - GENERAL O RDERABLES Final Result [facility] [address] [place] [address], * (ABNORMAL) Blood culture pathogens molecular study (01/19/2025 5:51 PM EDT) Staphylococcus epidermidis Detected (A) Not Detected LAB MICROBIOLOGY METHOD 01/20/2025 10:15 PM EDT [facility] Blood Venous blood specimen / Unknown Venipuncture / Unknown 01/19/2025 5:51 PM EDT 01/19/2025 6:03 PM EDT Lynne Guerra DO LAB MICROBIOLOGY - GENERAL OR DERABLES Final Result [facility] [address] [place] [address], * (ABNORMAL) Procalcitonin (01/19/2025 5:51 PM EDT) [facility] Procalcitonin 0.35(H) <=0.16 ng/mL LAB CHEMISTRY METHOD 01/20/2025 8:58 AM EDT [facility] Blood Venous blood specimen / Unknown Venipuncture / Unknown 01/19/2025 5:51 PM EDT 01/19/2025 6:02 PM EDT Narrative [facility] - 01/20/2025 8:58 AM EDT Procalcitonin > 2.00 ng/ml: Procalcitonin Levels above 2.00 ng/ml, on the first day of ICU admission represent a high risk for progression to severe sepsis and/or septic shock. Procalcitonin < 0.50 ng/ml: Procalcitonin levels below 0.50 ng/ml on the first day of ICU admission represent a low risk for progression to severe sepsis and/or septic shock. Concentrations <0.5 ng/mL do not exclude an infection, on account of local ized infections (without systemic signs) which can be associated with such low concentrations, or a systemic infection in its initial stages (<6 hours). Furthermore, increased procalcitonin can occur without infection. PCT concentrations between 0.5 and 2.0 ng/mL should be interpreted taking into account the patient's history. It is recommended to retest PCT within 6-24 hours if any concentrations <2.0 ng/mL are obtained. Tita JAY LAB BLOOD ORDERABLES Final Resu lt Performing Organization Address [facility] [place]/[facility] Co de Phone Number [facility] [address] [place] [address], [place] [phone] * (ABNORMAL) Lactate dehydrogenase (01/19/2025 5:51 PM EDT) LDH 340(H) 120 - 246 unit/L LAB CHEMISTRY METHOD 01/19/2025 10:08 PM EDT [facility] Blood Venous blood specimen / Unknown Venipuncture / Unknown 01/19/2025 5:51 PM EDT 01/19/2025 6:02 PM EDT Tita JAY LAB BLOOD ORDERABLES Final Resu lt Performing Organization Address [facility] de Phone Number [facility] [address] [place] [address], [place] [phone] * Prostate specific antigen screen (01/14/2025 3:35 PM EDT) Pathologist [facility] PSA 0.17 0.00 - 4.00 ng/mL LAB CHEMISTRY METHOD 01/14/2025 7:45 PM EDT [facility] Blood Venous blood specimen / Unknown Venipuncture / Unknown 01/14/2025 3:35 PM EDT 01/14/2025 3:50 PM EDT Narrative [facility] - 01/14/2025 7:45 PM EDT The Siemens Advia Centaur Chemiluminescent Immunoassay is used. Results obtained with different assay methods or kits cannot be used interchangeably. Results cannot be interpreted as absolute evidence of the presence or absence of malignant disease. Danny Angel MD LAB BLOOD ORDERABLES Final Result Performing Organization Address [facility] [place]/[facility]/ZIP Co de Phone Number [facility] [address] [place] [address], [place] [phone] * Thyroid stimulating hormone with reflex to free t4 and free t3 (01/14/2025 3:35 PM EDT) Pathologist [facility] TSH 3.83 0.40 - 4.00 mcIU/mL LAB CHEMISTRY METHOD 01/14/2025 8:57 PM EDT [facility] Blood Venous blood specimen / Unknown Venipuncture / Unknown 01/14/2025 3:35 PM EDT 01/14/2025 3:50 PM EDT Danny Angel MD LAB BLOOD ORDERABLES Final Result [facility] [address] [place] [address], [place] [phone] * (ABNORMAL) Lipid panel with reflex to direct LDL (11/05/2024 2:36 PM EDT) [facility] Cholesterol 134 0 - 200 mg/dL LAB CHEMISTRY METHOD 11/05/2024 6:06 PM EDT [facility] Triglycerides 112 0 - 150 mg/dL LAB CHEMISTRY METHOD 11/05/2024 6:06 PM EDT [facility] HDL 28(L) >=40 mg/dL LAB CHEMISTRY METHOD 11/05/2024 6:06 PM EDT [facility] LDL Calculated 84 0 - 100 mg/dL LAB CHEMISTRY METHOD 11/05/2024 6:06 PM EDT [facility] VLDL Cholesterol Woodrow 22.4 mg/dL LAB CHEMISTRY METHOD 11/05/2024 6:06 PM EDT [facility] Non HDL Chol. (LDL+VLDL) 106 <145 mg/dL LAB CHEMISTRY METHOD 11/05/2024 6:06 PM EDT [facility] Chol/HDL Ratio 4.8(H) 0.0 - 4.4 LAB CHEMISTRY METHOD 11/05/2024 6:06 PM EDT [facility] Blood Venous blood specimen / Unknown Venipuncture / Unknown 11/05/2024 2:36 PM EDT 11/05/2024 2:44 PM EDT Danny Angel MD LAB BLOOD ORDERABLES Final Result [facility] [address] [place] [address], [place] [phone] * Urine Albumin Creatinine Ratio (04/17/2023) Urine Albumin Creatinine Ratio abstracted Historical Provider HEALTH MAINTENANCE Final Result * Depression Screening (04/17/2023) Depression Screening abstracted Historical Provider HEALTH MAINTENANCE Final Result * Hepatitis C Screening (10/14/2022) Hepatitis C Screening abstracted Historical Provider HEALTH MAINTENANCE Final Result from Last 3 Months or Most Recently Relevant to Health Maintenance Insurance MEDICARE [facility] Advance Directives Documents on File Type Date Recorded Patient Board Certified Arts Therapist Brandi galloway Advance Directives and Livin g Will 04/01/2024 12:40 PM Reny Thompson Advance Directives and Livin g Will 03/30/2024 10:44 AM PROXY * Full Code - Default (Latest Code Status on File) Date Activated Date Inactivated Comments 03/13/2025 9:15 PM 03/15/2025 6:48 PM This is orde r is used when code status has not been discussed with the patient, or code status is otherwise unknown/unconfirmed To update the patient's code status, place a code status order. Do not modify or discontinue any currently active code status orders. * Full Code - Confirmed Date Activated Date Inactivated Comments 01/19/2025 9:53 PM 01/28/2025 7:49 PM This code status was ascertained in the following way: Code status discussion: discussion with patient To update the patient's code status, place a code status order. Do not modify or discontinue any currently active code status orders. * Full Code - Default Date Activated Date Inactivated Comments 01/19/2025 7:52 PM 01/19/2025 9:53 PM This is or alix is used when code status has not been discussed with the patient, or code status is otherwise unknown/unconfirmed To update the patient's code status, place a code status order. Do not modify or discontinue any currently active code status orders. * Full Code - Default Date Activated Date Inactivated Comments 01/03/2025 6:17 AM 01/03/2025 1:55 PM This is orde r is used when code status has not been discussed with the patient, or code status is otherwise unknown/unconfirmed To update the patient's code status, place a code status order. Do not modify or discontinue any currently active code status orders. * Full Code - Confirmed Date Activated Date Inactivated Comments 12/02/2024 1:10 PM 12/04/2024 7:[address] atus was ascertained in the following way: Code status discussion: discussion with healthcare pharmaceutical sales representative To update the patient's code status, place a code status order. Do not modify or discontinue any currently active code status orders. Healthcare Agents on File Name Relationship Healthcare Agent Relationshi p Communication Adalgisa Thompson Daughter Health Care Agent Reny Thompson Spouse First Alternate Health Care Agent Care Teams Vp Site Relationship Specialty Start Date End Date Danny Angel MD [address] [place] [address] PCP - General 12/12/23
--- OUTSIDE RECORDS SUMMARY | 2025-03-26 13:50 | XMS_ITS | Encounter Summary ---
Author Organization [employer] [place] [address] Care Team Providers Care Lock And Dam Repairer Name Role Phone Danny Angel MD Primary Care Provider [phone] Encounter Details Date Type Department Care Team ([facility] Contact Info) Description 02/26/2025 Results Follow-Up Adult Medicine [address] [id number] [place] [address] Danny Angel MD [address] [place], [place] Social History Tobacco Use Types Packs/Day Years Used Date Smoking Tobacco: Never Passive Smoke Exposure: Never Smokeless Tobacco: Never Alcohol Use Standard Drinks/Week Comments Not Currently 0 (1 standard drink = 0.6 oz pur e alcohol) Housing Instability Answer Date Recorde d Are you worried that in the next 2 months you may not have stable housing? No 01/23/2025 Food Access & Nutrition Answer Date Rec orded Do you have access to a vari ety of food including fruits and vegetables? Yes 01/23/2025 Access to Healthcare Answer Date Record ed Within the last 3 months, ho w many times did you visit the emergency department for your medical care? 1 01/23/2025 Health Literacy Answer Date Recorded How often do you need to hav e someone help you when you read instructions, pamphlets, or other written material from your doctor or pharmacy? Often 01/23/2025 Caregiver: How often do you need to have someone help you when you read instructions, pamphlets, or other written material from your doctor or pharmacy? Not on file 01/23/2025 Financial Risk Answer Date Recorded How hard is it for you to pa y for the very basics like food, housing, medical care, and air conditioning / heating? Somewhat hard 01/23/2025 Transportation Answer Date Recorded Has the lack of transportati on kept you from meetings, work, or from getting things needed for daily living? No Has the lack of transportati on kept you from medical appointments or from getting medications? No 01/23/2025 Social Isolation Answer Date Recorded How often do you feel lonely or isolated from th ose around you? Never 01/23/2025 Food Risk Answer Date Recorded Within the past 12 months we worried whether our food would run out before we got money to buy more. Sometimes true 025 Within the past 12 months th e food we bought just didn't last and we didn't have money to get more. Sometimes true 01/23/2025 Dependent Care Answer Date Recorded Do you need help finding or paying for care for your loved ones. For example, child care specialist or elderly care for an older adult? No 01/23/2025 Education Answer Date Recorded Do you think completing more education or training, like finishing a GED, going to college, or learning a trade, would be helpful for you? N/A 01/23/2025 Employment and Income Answer Date Recor ded During the last four weeks, have you been actively looking for work? No 01/23/2025 Living Situation Answer Date Recorded What is your living situation? Unrecognized valu e 01/23/2025 Interpersonal Safety Answer Date Record ed Physical Abuse Unrecognized value 01/27/2025 Verbal Abuse Unrecognized value 01/27/2025 Sex and Gender Information Value Date Recorded [...] Shirlene Patton RN documented in this encounter Plan of Treatment Upcoming Encounters Date Type Department Care Team (Late st Contact Info) Description 03/28/2025 3:00 PM EST Office Visit Pulmonology - [place] [address] [address] Siomara Lora MD [address] [place] [address] 04/15/2025 1:00 PM EST Office Visit Adult Medicine [address] [address] Danny Angel MD [address] [place] [address] 05/15/2025 11:00 AM EST Office Visit Gastroenterology - [address] [phone] Woodrow PlacidoDO [address] [address] 07/25/2025 2:45 PM EDT Office Visit [facility] Hematology Oncology [address] [place] [phone] Fan Manrique MD [address] [place] [phone] 08/19/2025 11:30 AM EDT Office Visit Adult Medicine [address] [phone] Danny Angel MD [address] [place], [place] 01/20/2026 2:00 PM EDT Office Visit [address] [phone] Danny Angel MD [address] [place], [place] documented as of this encounter Goals Goal [...] documented as of this encounter Care Teams Lock And Dam Repairer Relationship Specialty Start Date End Date Danny Angel MD [address] [place], [place] PCP - General 12/12/23 documented as of this encounter
--- OUTSIDE RECORDS SUMMARY | 2025-03-26 13:50 | XMS_ITS ---
Author Name [facility] Organization Unknown Care Team Organization Name Specialty Phone Email Start Date End Da te [facility] ACO 11/27/2024 [facility] Bradly Van Primary Care 03/22/20232023 [facility] Lydia Mondragon Primary Care 12/15/2022 024 [facility] Hellen Thomas Primary Care 02/15/2022 024
--- OUTSIDE RECORDS SUMMARY | 2025-03-26 13:50 | XMS_ITS | Encounter Summary ---
Author Organization [employer] Address [address] [place] [address] Care Team Providers Care Printed Circuit Board Panels Plater Name Role Phone Danny Angel MD Primary Care Provider [phone] Encounter Details Date Type Department Care Team (Late st Contact Info) Description 07/15/2024 Lab Requisition [facility] - Main Lab [address] [place] [address] [place] [address] Liver cell carcinoma (CMS/HCC V24, CMS/HCC V28) Social History Tobacco Use Types Packs/Day Years Used Date Smoking Tobacco: Never Smokeless Tobacco: Never Alcohol Use Standard Drinks/Week Comments Yes 0 (1 standard drink = 0.6 oz pur e alcohol) Housing Instability Answer Date Recorde d Are you worried that in the next 2 months you may not have stable housing? No 06/05/2024 Food Access & Nutrition Answer Date Rec orded Do you have access to a vari ety of food including fruits and vegetables? No 06/05/2024 Access to Healthcare Answer Date Record ed Within the last 3 months, ho w many times did you visit the emergency department for your medical care? 2 06/05/2024 Health Literacy Answer Date Recorded How often do you need to hav e someone help you when you read instructions, pamphlets, or other written material from your doctor or pharmacy? Unable to respond 06/05/2024 Caregiver: How often do you need to have someone help you when you read instructions, pamphlets, or other written material from your doctor or pharmacy? Not on file 025 Financial Risk Answer Date Recorded How hard is it for you to pa y for the very basics like food, housing, medical care, and air conditioning / heating? Not very hard 06/05/2024 Transportation Answer Date Recorded Has the lack of transportati on kept you from meetings, work, or from getting things needed for daily living? No Has the lack of transportati on kept you from medical appointments or from getting medications? No 06/05/2024 Social Isolation Answer Date Recorded How often do you feel lonely or isolated from those around you? Not asked 06/05/2024 Food Risk Answer Date Recorded Within the past 12 months we worried whether our food would run out before we got money to buy more. Never true 06/05/2024 Within the past 12 months th e food we bought just didn't last and we didn't have money to get more. Never true 06/05/2024 Dependent Care Answer Date Recorded Do you need help finding or paying for care for your loved ones. For example, child nurse or elderly care for an older adult? No 06/05/2024 Education Answer Date Recorded Do you think completing more education or training, like finishing a GED, going to college, or learning a trade, would be helpful for you? No 06/05/2024 Employment and Income Answer Date Recor ded During the last four weeks, have you been actively looking for work? No 06/05/2024 Living Situation Answer Date Recorded What is your living situation? Unrecognized valu e 06/05/2024 Interpersonal Safety Answer Date Record ed Physical Abuse Unrecognized value 07/16/2024 Verbal Abuse Unrecognized value 07/16/2024 Sex and Gender Information Value Date Recorded Sex Assigned at Male 03/26/2024 11:47 AM EST Legal Sex Male 9:07 AM EST Gender Identity Male 03/26/2024 11:47 AM EST Sexual Orientation Straight 05/09/2024 8: 26 AM EST documented as of this encounter Functional Status * Are you deaf or do you have serious difficulty hearing? Answer Date of Assessment Author No 03/26/2024 1:06 PM Hedy Garza RN * Are you blind or do you have serious difficulty seeing, even when wearing glasses? Answer Date of Assessment Author No 03/26/2024 1:06 PM Hedy Garza RN * Do you have serious difficulty walking or climbing stairs? Answer Date of Assessment Author Yes 03/26/2024 1:06 PM Hedy Garza RN * Do you have serious difficulty dressing or bathing? Answer Date of Assessment Author Yes 03/26/2024 1:06 PM Hedy Garza RN * Because of a physical, mental, or emotional condition, do you have serious difficulty doing errandsalone such as visiting the doctor? Answer Date of Assessment Author Yes 03/26/2024 1:06 PM Hedy Garza RN * Calculated C-SSRS Risk Score (Lifetime/Recent) Answer Date of Assessment Author No Risk Indicated 07/16/2024 3:39 PM Carolynn Wagoner RN * [place] Suicide Severity Rating Scale (Screener/Recent Self-Report) Question Answer Date of Assessment Author 1. Wish to be (Past 1 Month) No 025 3:39 PM Carolynn Wagoner RN 2. Non-Specific Active Suici anna Thoughts (Past 1 Month) No 07/16/2024 3:39 PM Carolynn Wagoner RN 6. Suicidal Behavior (Lifetime) No 3:39 PM Carolynn Wagoner RN documented as of this encounter Mental Status * Because of a physical, mental, or emotional condition, do you have serious difficulty concentrating, remembering, or making decisions? (5 years old or older) Answer Entry Date Author Yes 03/26/2024 1:06 PM Hedy Garza RN documented in this encounter Progress Notes * Placido Coulter DO - 07/15/2024 3:04 PM EDT Please have this patient f/u with me within 2 months. He is already established with oncology who will be contacting him with the results. * Giana Rosa MA - 07/15/2024 3:04 PM EDT F/u pending for 09/05/[address] coulter documented in this encounter Plan of Treatment Upcoming Encounters Date Type Department Care Team (Late st Contact Info) Description 03/28/2025 3:00 PM EST Office Visit Pulmonology - [place] [address] [phone] Siomara Lora MD [address] [place] [phone] 04/15/2025 1:00 PM EST Office Visit [facility] [place] [address] [place] [address] Danny Angel MD [address] [place] [address] 05/15/2025 11:00 AM EST Office Visit Gastroenterology - [address] [place] [phone] Placido Coulter DO [address] [address] 07/25/2025 2:45 PM EDT Office Visit [facility] Hematology Oncology [address] [place] [phone] Fan Manrique MD [address] [place] [phone] 08/19/2025 11:30 AM EDT Office Visit Adult Medicine [facility] [place] [address] [place] [address] Danny Angel MD [address] [facility] [place] 01/20/2026 2:00 PM EDT Office Visit [address] [phone] Danny Angel MD [address] [facility] [address] documented as of this encounter Goals Goal Patient Goal Type Associated Problems Recent Progress Patient-Stated? Author Pt to adhere to all medications General Yes Audra Contreras, MARGIE Note: Pt to adhere to daily medication regimen. documented as of this encounter Procedures Procedure Name Priority Date/Time Associated Diagnosis Comments TISSUE EXAM Routine 07/15/2024 Liver cell carcinoma documented in this encounter Results * Tissue Exam (07/15/2024) Final Diagnosis A. Liver, biopsy: - Moderately differentiated hepatocellular carcinoma. Note: Dr. Cade Hendricks was notified of the diagnosis by Dr. Cade Saucedo via [employer] application on 07/16/24 at 9:[address] Ruth Graf agrees with the diagnosis of hepatocellular carcinoma. 9:09 AM EDT [facility] at 0909 EDT Comment Final Diagnosis was reviewed during intradepartmental consult. 9:09 AM EDT [facility] Clinical Information Liver mass, cirrhosis LI rads 5 9:09 AM T [facility] Gross Description A. Liver, biopsy: Labeled right liver mass . Received in formalin are two cylindrical valente-yellow to red soft tissue cores, measuring 1.3 x 0.1 cm and 1.8 x 0.1 cm, which are wrapped in paper and submitted in toto in two cassettes, one piece each, x 2 with valente stained slides between levels. KEAGAN 9:09 AM EDT [facility] Disclaimer Unless otherwise specified, all tissue is 10% NB formalin fixed and paraffin embedded. NOTE: The immunohistochemical tests and in situ hybridization tests were developed and their performance characteristics were determined by [facility]. They have not been cleared or approved by the U.S. Food and Drug Administration. The FDA has determined that such clearance or approval is not necessary. These tests are used for clinical purposes. They should not be regarded as investigational or for research. This laboratory is certified under the Clinical Laboratory Improvement Amendments of 1988 (CLIA) as qualified to perform high complexity clinical laboratory testing. (controls appropriate) 9:09 AM EDT [facility] Tissue Liver structure / Unknown 07/15/2024 07/15/2024 3:15 PM EDT us Chris West MD LAB PATHOLOGY ORDERABLES Final Result [facility] [address] [place] [address], documented in this encounter Visit Diagnoses Diagnosis Liver cell carcinoma (CMS/HCC V24, CMS/HCC V28) Malignant neoplasm of liver, primary documented in this encounter Additional Health Concerns Infection Onset Date Last Indicated Resolved Time Respiratory Rule-Out 09/25/2024 09/25/2024 025 10:56 PM EDT COVID-19 Rule-Out 09/25/2024 09/25/2024 09/25/2024 10:56 PM EDT Respiratory Rule-Out 12/02/2024 12/02/2024 025 10:18 AM EDT COVID-19 Rule-Out 12/02/2024 12/02/2024 12/02/2024 10:18 AM EDT Respiratory Rule-Out 12/02/2024 12/02/2024 025 2:42 PM EDT COVID-19 Rule-Out 12/02/2024 12/02/2024 12/02/2024 2:42 PM EDT Respiratory Rule-Out 01/19/2025 01/19/2025 025 6:59 PM EDT COVID-19 Rule-Out 01/19/2025 01/19/2025 01/19/2025 6:59 PM EDT Assessment Noted Time PHQ-9 Depression Total Score: 0 05/23/19 6:02 PM EST documented as of this encounter Care Teams Printed Circuit Board Panels Plater Relationship Specialty Start Date End Date Danny Angel MD [address] [place] [address] PCP - General 12/12/23 documented as of this encounter
--- OUTSIDE RECORDS SUMMARY | 2025-03-26 13:50 | XMS_ITS ---
Author Organization [address] [place] [address] Address [address] [place] [address] Phone Care Team Providers Care Shop Tech Name Role Phone Danny Angel MD Primary Care Provider [phone]- [phone] Transitional Care Management Status:Ongoing (Active) Start date:03/15/2025 Enrollment date:03/17/2025 Enrollment reason:Identified using hospital discharge data Related social drivers of health:TH Health Literacy, Financial Risk, Food Risk Case Team Name Relationship Phone Audra Contreras RN(Responsible Staff) Manager Country Continued Care and Services Coordination
--- OUTSIDE RECORDS SUMMARY | 2025-03-26 13:50 | XMS_ITS | Clinical Summary ---
Author Organization [facility] Address [address] [facility] [address] [place] [address] Phone Care Team Providers Care Cdl Bulk Driver Name Role Phone Pcp, Unknown Primary Care Provider Unavailabl e Encounters Date Type Department Care Team Description 02/18/2025 Transcribe Orders [facility] [address] [place] [address] Lizbeth Tenorio MA Parkinson's disease without dyskinesia, unspecified whether manifestations fluctuate (Primary Dx) from Last 3 Months Social History Tobacco Use Types Packs/Day Years Used Date Smoking Tobacco: Never Assessed Education Answer Date Recorded Are you interested in more education? Not on [place] 07/26/2023 Are you concerned about learning? Not on file 07/26/2023 No 07/26/2023 No 07/26/2023 Digital Access Answer Date Recorded No 07/26/2023 No 07/26/2023 Reliable internet access at home? Not on file 07/26/2023 Device with a working camera? Not on file Sex and Gender Information Value Date Recorded Sex Assigned at Not on file Legal Sex Male 11:31 AM EDT Gender Identity Not on file Sexual Orientation Not on file Plan of Treatment Health Maintenance Due Date Last Done Comments Adult Td,Tdap Booster 1950 LIPID PANEL 1950 DEPRESSION SCREENING 1962 SMOKING Hx and SMOKELESS TOB ACCO SCREENING 10/12/1963 HEPATITIS C SCREENING 1968 COLOGUARD 10/12/1995 COLONOSCOPY 10/12/1995 COLORECTAL CANCER SCREENING 10/12/1995 FIT TEST 10/12/1995 FOBT 10/12/1995 SIGMOIDOSCOPY 10/12/1995 VIRTUAL COLONOSCOPY 10/12/1995 PNEUMOCOCCAL VACCINES (50+ y ears) (1 of 1 - PCV) 2000 ZOSTER VACCINES (1 of 2) 2000 INFLUENZA VACCINE (#1) 2024 COVID-19 VACCINE (1 - 2024-2 6 season) 2024 RSV VACCINE (1 - 1-dose 75+ series) 2025 HEPATITIS A VACCINES Aged Out No long er eligible based on patient's age to complete this topic HIB VACCINES Aged Out No longer eligi ble based on patient's age to complete this topic MENINGOCOCCAL VACCINES (ACWY) Aged Out No longer eligible based on patient's age to complete this topic MENINGOCOCCAL VACCINES (B) Aged Out N o longer eligible based on patient's age to complete this topic Medical Devices Not on file Insurance MEDICARE PART A & B [facility] MEDEX SUPPLEMENT MEDICARE PART A & B [employer] MEDEX SUPPLEMENT MEDICARE PART A & B [employer] MEDEX SUPPLEMENT MEDICARE PART A & B [employer] MEDEX SUPPLEMENT MEDICARE PART A & B [employer] MEDEX SUPPLEMENT MEDICARE PART A & B [employer] MEDEX SUPPLEMENT Care Teams Cdl Bulk Driver Relationship Specialty Start Date End Date Pcp, Unknown PCP - General 07/26/23 Additional Source Comments The information contained in this document represents components of the legal health record. It is not the complete legal health record.[facility]
--- OUTSIDE RECORDS SUMMARY | 2025-03-26 13:50 | XMS_ITS | Encounter Summary ---
Author Organization [place] [address] Care Team Providers Care Bed Worker Name Role Phone Danny Angel MD Primary Care Provider [phone]- [phone] Reason for Visit * Reason Onset Date Comments Fitting for DME 02/28/2025 Encounter Details Date Type Department Care Team ([facility] Contact Info) Description 02/28/2025 Telephone Adult Medicine [facility] [address] [place] [address] Danny Angel MD [address] [place] [address] Social History Tobacco Use Types Packs/Day Years [...] care for your loved ones. For example, early childhood services coordinator or elderly care for an older adult? [...] documented in this encounter Progress Notes * Roxanne Aparicio - 03/17/2025 12:26 PM EST [facility], she is asking if the orders can be faxed to [facility]? She is not sure which medical supply is contracted with Medicare. Please review. Family or OT have not heard back on this request. * Arsalan Courtney - 02/28/2025 2:18 PM EST [facility] CALL Which [facility] office is calling? Marina STRICKLANDA / Full name of caller: Patricia The caller is OT Is the caller at the patients home?: no Reason for call: Call to state patient had a condition change , states that patient is spending a lot more time in bed , needs assistance toileting due to overnight incontinense , requires additionalassistance with eating and bathing , requires 2 people to transfer him to the wheelchair , doesn't have an adequete wheel chair , needs a wheelchair , hospital bed and mechanical lift , please advise, would need a 20 x 18 x 22 wheelchair , also a gel wheelchair cussion Does caller need an urgent call back? no Was CONTACT Telephone # obtained above?: yes Fax #: documented in this encounter Plan of Treatment Upcoming Encounters Date Type Department Care Team (Late st Contact Info) Description 03/28/2025 3:00 PM EST Office Visit Pulmonology - [place] [address] [address] Siomara Lora MD [address] [place] [address] 04/15/2025 1:00 PM EST Office Visit Adult Medicine [facility] [address] [place] [address] Danny Angel MD [address] [place] [address] 05/15/2025 11:00 AM EST Office Visit Gastroenterology - [address] [place] [phone] Placido Troy DO [address] [address] 07/25/2025 2:45 PM EDT Office Visit [facility] Hematology Oncology [address] [place] [phone] Fan Manrique MD [address] [place] [address] 08/19/2025 11:30 AM EDT Office Visit [address] [phone] Danny Angel MD [address] [place], [place] 01/20/2026 2:00 PM EDT Office Visit [address] [phone] Danny Angel MD 4 [place], [place] documented as of this encounter Goals [...] documented as of this encounter Care Teams Bed Worker Relationship Specialty Start Date End Date Danny Angel MD [address] [place] [address] PCP - General 12/12/23 documented as of this encounter
--- OUTSIDE RECORDS SUMMARY | 2025-03-26 13:50 | XMS_ITS | Encounter Summary ---
Author Organization [employer] [facility] Address [address] [place] [address] Care Team Providers Care Land Commissioner Name Role Phone Danny Angel MD Primary Care Provider [phone]- [phone] Reason for Visit * Reason Comments home health cert Encounter Details Date Type Department Care Team ([facility] st Contact Info) Description 05/24/2024 Billing Patient Not Present Adult Medicine [place] [address] [place], [place] [phone] Danny Angel MD 4 [place], [place] Neurocognitive disorder with Lewy bodies (CODE) ([facility]/HCC V24, [facility]/HCC V28) (Primary Dx); Metabolic encephalopathy; Pressure ulcer of right buttock, stage 2 (CMS/HCC V24, CMS/HCC V28); Type 2 diabetes mellitus without complication, unspecified whether marine oil terminal superintendent insulin use (CMS/HCC V24, CMS/HCC V28); Hepatic cirrhosis, unspecified hepatic cirrhosis type, unspecified whether ascites present ([facility] V24, [facility] V28); Esophageal varices without bleeding, unspecified esophageal varices type ([facility] V24, [facility] V28); Other intervertebral disc degeneration of lumbar region without lumbar back pain or lower extremity pain; Bilateral primary osteoarthritis of knee; Benign localized prostatic hyperplasia without lower urinary tract symptoms (LUTS); Anemia, unspecified type; Portal hypertension ([facility] V24, [facility] V28); Overactive bladder; Vitamin D deficiency, unspecified; Obesity, Class I, BMI 30-34.9; marine oil terminal superintendent (current) use of oral hypoglycemic drugs; retirement (current) use of aspirin; Dementia in other diseases classified elsewhere, moderate, without behavioral disturbance, psychotic disturbance, mood disturbance, and anxiety ([facility] V24, [facility] V28) Social History Tobacco Use Types Packs/Day Years Used Date Smoking Tobacco: Never Smokeless Tobacco: Never Alcohol Use Standard Drinks/Week Comments Yes 0 (1 standard drink = 0.6 oz pur e alcohol) Housing Instability Answer Date Recorde d Are you worried that in the next 2 months you may not have stable housing? No 04/17/2024 Food Access & Nutrition Answer Date Rec orded Do you have access to a vari ety of food including fruits and vegetables? No 04/17/2024 Access to Healthcare Answer Date Record ed Within the last 3 months, lamar w many times did you visit the emergency department for your medical care? 2 04/17/2024 Health Literacy Answer Date Recorded How often do you need to hav e someone help you when you read instructions, pamphlets, or other written material from your doctor or pharmacy? Always 04/17/2024 Caregiver: How often do you need to have someone help you when you read instructions, pamphlets, or other written material from your doctor or pharmacy? Not on file 04/17/2024 Financial Risk Answer Date Recorded How hard is it for you to pa y for the very basics like food, housing, medical care, and air conditioning / heating? Not very hard 04/17/2024 Transportation Answer Date Recorded Has the lack of transportati on kept you from meetings, work, or from getting things needed for daily living? Not on file 04/17/2024 Has the lack of transportati on kept you from medical appointments or from getting medications? No 04/17/2024 Social Isolation Answer Date Recorded How often do you feel lonely or isolated from th ose around you? Rarely 04/17/2024 Food Risk Answer Date Recorded Within the past 12 months we worried whether our food would run out before we got money to buy more. Sometimes true 025 Within the past 12 months th e food we bought just didn't last and we didn't have money to get more. Sometimes true 04/17/2024 Dependent Care Answer Date Recorded Do you need help finding or paying for care for your loved ones. For example, childbirth educator or elderly care for an older adult? No 04/17/2024 Education Answer Date Recorded Do you think completing more education or training, like finishing a GED, going to college, or learning a trade, would be helpful for you? N/A 04/17/2024 Employment and Income Answer Date Recor ded During the last four weeks, have you been actively looking for work? No 04/17/2024 Living Situation Answer Date Recorded What is your living situation? Unrecognized valu e 04/17/2024 Interpersonal Safety Answer Date Record ed Physical Abuse Unrecognized value 05/20/2024 Verbal Abuse Unrecognized value 05/20/2024 Sex and Gender Information Value Date Recorded [...] 03/26/2024 1:06 PM Hedy Garza RN documented as of this encounter Mental Status * Because of a physical, mental, or emotional condition, do you have serious difficulty concentrating, remembering, or making decisions? (5 years old or older) Answer Entry Date Author Yes 03/26/2024 1:06 PM Hedy Garza RN documented in this encounter Plan of Treatment Upcoming Encounters Date Type Department Care Team (Late st Contact Info) Description 03/28/2025 3:00 PM EST Office Visit Pulmonology - [place] 299 [facility] [address] [place] [address] Siomara Lora MD [address] [place] [address] 04/15/2025 1:00 PM EST Office Visit Adult Medicine [address] [phone] Danny Angel MD [address] [place] [address] 05/15/2025 11:00 AM EST Office Visit Gastroenterology - [address] [place] [address] Placido Troy, [address] [address] 07/25/2025 2:45 PM EDT Office Visit [facility] Hematology Oncology [address] [place] [address] Fan Manrique MD [address] [place], [place] 08/19/2025 11:30 AM EDT Office Visit Adult Medicine [address] [phone] Danny Angel MD [address] [place] [address] [place] 01/20/2026 2:00 PM EDT Office Visit Adult [facility] [address] [place] [address] Danny Angel MD [address] [place], [place] documented as of this encounter Goals Goal Patient Goal Type Associated Problems Recent Progress Patient-Stated? Author Pt to adhere to all medications General Yes Audra Contreras RN Note: Pt to adhere to daily medication regimen. documented as of this encounter Visit Diagnoses Diagnosis Neurocognitive disorder with Lewy bodies (CODE) ([facility] V24, [facility] V28)- Primary Metabolic encephalopathy Pressure ulcer of right buttock, stage 2 (CMS/HCC V24, CMS/[facility] V28) Type 2 diabetes mellitus without complication, unspecified whether fpc insulin use Hepatic cirrhosis, unspecified hepatic cirrhosis type, unspecified whether ascites present (CMS/HCC V24, CMS/HCC V28) Esophageal varices without bleeding, unspecified esophageal varices type (CMS/HCC V24, CMS/HCC V28) Other intervertebral disc degeneration of lumbar region without lumbar back pain or lower extremity pain Bilateral primary osteoarthritis of knee Benign localized prostatic hyperplasia without lower urinary tract symptoms (LUTS) Anemia, unspecified type Portal hypertension (CMS/HCC V24, CMS/HCC V28) Portal hypertension Overactive bladder Hypertonicity of bladder Vitamin D deficiency, unspecified Obesity, Class I, BMI 30-34.9 retirement (current) use of oral hypoglycemic drugs marine oil terminal superintendent (current) use of aspirin Dementia in other diseases classified elsewhere, moderate, without behavioral disturbance, psychotic disturbance, mood disturbance, and anxiety (CMS/HCC V24, CMS/[facility] V28) documented in this encounter Additional Health Concerns [...] documented as of this encounter Care Teams Land Commissioner Relationship Specialty Start Date End Date Danny Angel MD [address] [place] [address] PCP - General 12/12/23 documented as of this encounter
--- OUTSIDE RECORDS SUMMARY | 2025-03-26 13:50 | XMS_ITS | Encounter Summary ---
Author Organization [employer] [place] [address] Care Team Providers Care Clinical Nurse Reviewer Name Role Phone Danny Angel MD Primary Care Provider [phone] Encounter Details Date Type Department Care Team (Late st Contact Info) Description 12/05/2024 Referral Triage [facility] [address] [place] [address] Demetrio Turner Social History Tobacco Use Types Packs/Day Years Used Date Smoking Tobacco: Never Passive Smoke Exposure: Never Smokeless Tobacco: Never Alcohol Use Standard Drinks/Week Comments Not Currently 0 (1 standard drink = 0.6 oz pur e alcohol) Housing Instability Answer Date Recorde d Are you worried that in the next 2 months you may not have stable housing? No 12/05/2024 Food Access & Nutrition Answer Date Rec orded Do you have access to a vari ety of food including fruits and vegetables? Yes 12/05/2024 Access to Healthcare Answer Date Record ed Within the last 3 months, lamar w many times did you visit the emergency department for your medical care? 1 08/08/2024 Health Literacy Answer Date Recorded How often do you need to hav e someone help you when you read instructions, pamphlets, or other written material from your doctor or pharmacy? Often 08/08/2024 Caregiver: How often do you need to have someone help you when you read instructions, pamphlets, or other written material from your doctor or pharmacy? Not on file 08/08/2024 Financial Risk Answer Date Recorded How hard is it for you to pa y for the very basics like food, housing, medical care, and air conditioning / heating? Somewhat hard 12/05/2024 Transportation Answer Date Recorded Has the lack of transportati on kept you from meetings, work, or from getting things needed for daily living? No Has the lack of transportati on kept you from medical appointments or from getting medications? No 12/05/2024 Social Isolation Answer Date Recorded How often do you feel lonely or isolated from th ose around you? Never 08/08/2024 Food Risk Answer Date Recorded Within the past 12 months we worried whether our food would run out before we got money to buy more. Sometimes true 025 Within the past 12 months th e food we bought just didn't last and we didn't have money to get more. Sometimes true 12/05/2024 Dependent Care Answer Date Recorded Do you need help finding or paying for care for your loved ones. For example, child care sitter or elderly care for an older adult? No 08/08/2024 Education Answer Date Recorded Do you think completing more education or training, like finishing a GED, going to college, or learning a trade, would be helpful for you? N/A 08/08/2024 Employment and Income Answer Date Recor ded During the last four weeks, have you been actively looking for work? No 08/08/2024 Living Situation Answer Date Recorded What is your living situation? Unrecognized valu e 12/05/2024 Interpersonal Safety Answer Date Record ed Physical Abuse Unrecognized value 12/02/2024 Verbal Abuse Unrecognized value 12/02/2024 Sex and Gender Information Value Date Recorded [...] 3:00 PM EST Office Visit Pulmonology - [address] [place] [address] Siomara Lroa MD [address] [place] [phone] 04/15/2025 1:00 PM EST Office Visit Adult Medicine [address] [phone] Danny Angel MD [address] [place] [address] 05/15/2025 11:00 AM EST Office Visit Gastroenterology - [address] [place] [address] [address] [place] [address] Placido Troy DO 299 [facility] [address] [place] [address] 07/25/2025 2:45 PM EDT Office Visit [facility] Hematology Oncology [address] [place] [phone] Fan Manrique MD [address] [place] [address] 08/19/2025 11:30 AM EDT Office Visit [address] [phone] Danny Angel MD [address] [place], [place] 01/20/2026 2:00 PM EDT Office Visit [address] [phone] Danny Angel MD [address] [place], [place] documented as of this encounter Goals Goal Patient Goal Type Associated Problems Recent Progress Patient-Stated? Author Pt to adhere to all medications General Yes Audra Contreras, RN Note: Pt to adhere to daily medication regimen. documented as of this encounter Interventions Community Resource Recommendations Community Resource Services Recommended Domains Addressed Status Status Reason/Outcome Date/Time [facility] Food Pantry Food Pantry Food Risk 12/05/2024 3:21 PM EDT [facility] [employer] - Food Pantry Food Pantry Food Risk 12/05/2024 3:21 PM EDT [facility] - The Market Food Pantry Food Pantry Food Risk 12/05/2024 3:21 PM EDT [facility] - Emergency Food Pantry Food Pantry Food Risk 12/05/2024 3:21 PM EDT [facility] - Food Pantry Food Pantry Food Risk 12/05/2024 3:21 PM EDT Aaron [facility] - [employer] Success - Financial Education & Counseling Credit Counseling, Financial Education, Homebuyer Education Financial Risk 12/05/2024 3:21 PM EDT Alexey Ugarte [facility] - Emergency Food Distribution Program (ML Food Pantry Food Risk 12/05/2024 3:21 PM EDT [facility] Food Pantry Food Risk 12/05/2024 3:21 PM EDT [facility] - Food Pantry Food Pantry Food Risk 12/05/2024 3:21 PM EDT [facility] - Food Pantry Food Pantry Food Risk 12/05/2024 3:21 PM EDT [facility] Food Pantry Food Risk 12/05/2024 3:21 PM EDT [facility] - Emergency Food Pantry Emergency Food Food Risk 12/05/2024 3:[address] [facility] - Food Pantry Food Pantry Food Risk 12/05/2024 3:21 PM EDT Cleopatra Diaz - Food Pantry Food Pantry Food Risk 12/05/2024 3:21 PM EDT [employer] [facility] Food Pantry Food Pantry Food Risk 12/05/2024 3:21 PM EDT [facility] Food Pantry Food Risk 12/05/2024 3:21 PM EDT [facility] - Food Pantry Food Pantry Food Risk 12/05/2024 3:21 PM EDT [facility] - Food Pantry Emergency Food, Food Pantry Food Risk 12/05/2024 3:21 PM EDT documented as of this encounter Visit Diagnoses Not on filedocumented in this encounter Additional Health Concerns Infection Onset Date Last Indicated Resolved Time Respiratory Rule-Out 01/19/2025 01/19/2025 025 6:59 PM EDT COVID-19 Rule-Out 01/19/2025 01/19/2025 01/19/2025 6:59 PM EDT Assessment Noted Time PHQ-9 Depression Total Score: 0 05/23/19 25 6:02 PM EST documented as of this encounter Care Teams Clinical Nurse Reviewer Relationship Specialty Start Date End Date Danny Angel MD [address] [place] [address] PCP - General 12/12/23 documented as of this encounter
--- OUTSIDE RECORDS SUMMARY | 2025-03-26 13:51 | XMS_ITS | Encounter Summary ---
Author Organization [employer] Address [address] [place] [address] Care Team Providers Care Project Management Consultant Name Role Phone Danny Angel MD Primary Care Provider +1 [phone] Encounter Details Date Type Department Care Team (Late st Contact Info) Description 11/01/2024 Lab Requisition [facility] - Main Lab 299 [facility] [place] [address] Nicko Hoang MD [address] [facility] [address] [place] [address] Benign essential microscopic hematuria Social History Tobacco Use Types Packs/Day Years Used Date Smoking Tobacco: Never Passive Smoke Exposure: Never Smokeless Tobacco: Never Alcohol Use Standard Drinks/Week Comments Not Currently 0 (1 standard drink = 0.6 oz pur e alcohol) Housing Instability Answer Date Recorde d Are you worried that in the next 2 months you may not have stable housing? No 08/08/2024 Food Access & Nutrition Answer Date Rec orded Do you have access to a vari ety of food including fruits and vegetables? Yes 08/08/2024 Access to Healthcare Answer Date Record ed [...] air conditioning / heating? Not very hard 08/08/2024 Transportation Answer Date Recorded Has the lack of transportati on kept you from meetings, work, or from getting things needed for daily living? No Has the lack of transportati on kept you from medical appointments or from getting medications? No 08/08/2024 Social Isolation Answer Date Recorded How often do you feel lonely or isolated from th ose around you? Never 08/08/2024 Food Risk Answer Date Recorded Within the past 12 months we worried whether our food would run out before we got money to buy more. Never true 08/08/2024 Within the past 12 months th e food we bought just didn't last and we didn't have money to get more. Never true 08/08/2024 Dependent Care Answer Date Recorded Do you need help finding or paying for care for your loved ones. For example, director maternal child or elderly care for an older [...] is your living situation? Unrecognized valu e 08/08/2024 Interpersonal Safety Answer Date Record ed Physical Abuse Unrecognized value 09/13/2024 Verbal Abuse Unrecognized value 09/13/2024 Sex and Gender Information Value Date Recorded [...] 3:00 PM EST Office Visit Pulmonology - [place] 299 [facility] 410 [place] [address] Siomara Lora MD [address] [place] [address] 04/15/2025 1:00 PM EST Office Visit Adult Medicine [address] [place] [address] Danny Angel MD 4 [place] [address] 05/15/2025 11:00 AM EST Office Visit Gastroenterology - [address] [phone] Woodrow PlacidoDO [address] [address] 07/25/2025 2:45 PM EDT Office Visit [facility] Hematology Oncology [address] [place] [phone] Fan Manrique MD [address] [place] [phone] 08/19/2025 11:30 AM EDT Office Visit Adult [address] [phone] Danny Angel MD [address] [place], [place] 01/20/2026 2:00 PM EDT Office Visit [address] [phone] Danny Angel MD 4 [place], [place] documented as of this encounter Goals Goal Patient Goal Type Associated Problems Recent Progress Patient-Stated? Author Pt to adhere to all medications General Yes Audra Contreras, RN Note: Pt to adhere to daily medication regimen. documented as of this encounter Procedures Procedure Name Priority Date/Time Associated Diagnosis Comments NON-GYNECOLOGIC CYTOLOGY Routine 10/30/2024 12:00 AM EDT Benign essential microscopic hematuria documented in this encounter Results * Non-gynecologic cytology (10/30/2024 12:00 AM EDT) Final Diagnosis Cystoscopic urine, [id number]: Negative for high grade urothelial carcinoma. Acute inflammatory cells are present. 11/11/2024 4:31 PM EDT [facility] at 1631 EDT Specimen A Adequacy Satisfactory for evaluation 11/11/2024 4:31 PM EDT [facility] Clinical Information Gross hematuria R31.0 Urine cytology with reflex UroVysion (AUC/SHGUC) 11/11/2024 4:31 PM EDT [facility] Gross Description A. Cystoscopic, [id number]: Received one ThinPrep slide for cytology. 11/11/2024 4:31 PM EDT [facility] Disclaimer Unless otherwise specified, all tissue is 10% NB formalin fixed and paraffin embedded. Technical pathology services provided by [facility] at [address] [facility] [address], [place] [address] (CLIA #[id number]/Fernando Saucedo MD, Retail Store Clerk) 11/11/2024 4:31 PM EDT [facility] Urine Cystoscope / Unknown 10/30/2024 11/01/2024 9:10 AM EDT us Nicko Hoang MD LAB CYTOLOGY ORDERABLES Fin al Result [facility] [address] [place] [address], documented in this encounter Visit Diagnoses Diagnosis Benign essential microscopic hematuria documented in this encounter Additional Health Concerns Infection Onset Date Last Indicated Resolved Time Respiratory Rule-Out 12/02/2024 12/02/20242 025 10:18 AM EDT COVID-19 Rule-Out 12/02/2024 12/02/2024 12/02/2024 10:18 AM EDT Respiratory Rule-Out 12/02/2024 12/02/20242 025 2:42 PM EDT COVID-19 Rule-Out 12/02/2024 12/02/2024 12/02/2024 2:42 PM EDT Respiratory Rule-Out 01/19/2025 01/19/2025 025 6:59 PM EDT COVID-19 Rule-Out 01/19/2025 01/19/2025 01/19/2025 6:59 PM EDT Assessment Noted Time PHQ-9 Depression Total Score: 0 05/23/19 25 6:02 PM EST documented as of this encounter Care Teams Project Management Consultant Relationship Specialty Start Date End Date Danny Angel MD [address] [place] [address] PCP - General 12/12/23 documented as of this encounter
== END 2025-03-26 10:44 | disposition home or self-care (01) ==
LOC: HO.HVNA 10:43
PROVIDERS: Visit Provider Internal Medicine
DX: E87.5 Hyperkalemia (principal)
CPT/HCPCS: 36415; 80048